=== PATIENT | female | born 1945 | race Asian ===

== ENCOUNTER 2017-09-19 06:47 | Day surgery (SDC) | payer MEDICARE, MEDICAID ==
[2017-09-15 12:29] LABS: HEMOGLOBIN A1C 10.5 % (4.5-6.2)
[2017-09-15 12:37] LABS: PARTIAL THROMBOPLASTIN TIME 24 SECONDS (22-32); PROTHROMBIN TIME 10.3 SECONDS (9.0-12.0)
[2017-09-15 12:59] LABS: HEMOGLOBIN 13.2 g/dl (12.0-16.0); RED BLOOD COUNT 4.18 X10'6 (4.20-5.60); WHITE BLOOD COUNT 4.7 X10'3 (4.5-11.0)
[2017-09-15 13:00] LABS: BASOPHILS % (AUTO) 0.6 % (0-1); EOSINOPHILS # (AUTO) 0.1 X10'3 (0-0.9); EOSINOPHILS % (AUTO) 2.5 % (0-6); HEMATOCRIT 38.6 % (35.0-45.0); LYMPHOCYTES # (AUTO) 1.2 X10'3 (1.1-4.8); LYMPHOCYTES % (AUTO) 25.1 % (21-51); MEAN CORPUSCULAR HEMOGLOBIN 31.7 PG (27.0-31.0); MEAN CORPUSCULAR HGB CONC 34.3 % (33.0-36.5); MEAN CORPUSCULAR VOLUME 92.4 FL (78-98); MEAN PLATELET VOLUME 7.9 FL (7.4-10.4); MONOCYTES # (AUTO) 0.4 X10'3 (0-0.9); MONOCYTES % (AUTO) 9.2 % (2-12); NEUTROPHILS # (AUTO) 2.9 X10'3 (1.8-7.7); NEUTROPHILS % (AUTO) 62.6 % (42-75); PLATELET COUNT 241 X10'3 (140-440); RED CELL DISTRIBUTION WIDTH 13.9 % (11.5-14.5)
[2017-09-15 13:02] LABS: ALANINE AMINOTRANSFERASE 65 U/L (12-78); ALBUMIN 3.3 G/DL (3.4-5.0); ALBUMIN/GLOBULIN RATIO 0.8 (1.1-1.5); ALKALINE PHOSPHATASE 87 IU/L (46-116); ANION GAP 12 (8-16); ASPARTATE AMINO TRANSFERASE 41 U/L (10-37); BILIRUBIN,TOTAL 0.5 MG/DL (0.1-1.0); BLOOD UREA NITROGEN 24 MG/DL (7-18); BUN/CREATININE RATIO 15.7 (6.6-38.0); CALCIUM 9.3 MG/DL (8.5-10.1); CHLORIDE 99 MMOL/L (99-107); CREATININE 1.53 MG/DL (0.40-0.90); GLUCOSE 146 MG/DL (70-104); PHOSPHORUS 3.8 MG/DL (2.3-4.5); POTASSIUM 3.2 MMOL/L (3.5-5.1); SODIUM 138 MMOL/L (135-145); TOTAL CARBON DIOXIDE 27.5 MMOL/L (24-32); TOTAL PROTEIN 7.7 G/DL (6.4-8.2); eGFR 34 ML/MIN
[2017-09-15 13:05] LABS: CLARITY,URINE CLEAR (Clear); COLOR,URINE YELLOW (Yellow); GLUCOSE, URINE 100 mg/dl (Neg); KETONES,URINE NEGATIVE (Neg); LEUKOCYTE ESTERASE ,URINE NEGATIVE (Neg); NITRITES, URINE NEGATIVE (Neg); OCCULT BLOOD,URINE NEGATIVE (Neg); PROTEIN,URINE >=300 mg/dl (Neg); UROBILINOGEN,URINE 0.2 E.U/dL (0.2-1.0)
[2017-09-15 13:06] LABS: UA COLLECTION TYPE CLN CATCH MIDSTREAM
[2017-09-15 13:10] LABS: UA PROTEIN/CREATININE RATIO 5.4 mg/mg Cr (0-0.16)
[2017-09-15 13:23] LABS: BACTERIA,URINE NONE SEEN /HPF (Neg); COARSE GRANULAR CAST 0-3 /LPF (NEGATIVE); MUCUS STRANDS NONE SEEN /LPF (Neg); RBC,URINE NONE SEEN /HPF (0-2); RENAL CELLS, URINE FEW /HPF; SQUAMOUS EPITHELIAL CELL,UR FEW /LPF (FEW); WBC,URINE 0-4 /HPF (0-4)
[2017-09-16 10:58] LABS: PARATHYROID HORMONE 37.9 PG/ML (11-67)
[2017-09-19] VITALS (20 sets, daily range): BP systolic 108–176; BP diastolic 54–94
[~2017-09-19 06:47] MED LIST: NYST15OI14 TP; POTA20TA19 PO; TRIA15CR62 TP; ZINO TP
[2017-09-19] MEDS ORDERED: MIDAZolam 1mg/ml 10ml vial IV ONE (07:25)
[2017-09-19] MEDS ORDERED: LIDOcaine 1%/PF 5ML 10 MG/ML VIAL SQ ONE (08:00)
[2017-09-19] MEDS ORDERED: normal saline 1000ml 1,000 ML IV SCH (08:15)
[2017-09-19 08:30] LABS: BASOPHILS % (AUTO) 0.5 % (0-1); EOSINOPHILS # (AUTO) 0.1 X10'3 (0-0.9); EOSINOPHILS % (AUTO) 2.7 % (0-6); HEMATOCRIT 36.5 % (35.0-45.0); HEMOGLOBIN 12.5 g/dl (12.0-16.0); LYMPHOCYTES # (AUTO) 1.2 X10'3 (1.1-4.8); LYMPHOCYTES % (AUTO) 26.4 % (21-51); MEAN CORPUSCULAR HEMOGLOBIN 31.6 PG (27.0-31.0); MEAN CORPUSCULAR HGB CONC 34.2 % (33.0-36.5); MEAN CORPUSCULAR VOLUME 92.3 FL (78-98); MEAN PLATELET VOLUME 7.7 FL (7.4-10.4); MONOCYTES # (AUTO) 0.5 X10'3 (0-0.9); MONOCYTES % (AUTO) 10.9 % (2-12); NEUTROPHILS # (AUTO) 2.7 X10'3 (1.8-7.7); NEUTROPHILS % (AUTO) 59.5 % (42-75); PLATELET COUNT 233 X10'3 (140-440); RED BLOOD COUNT 3.95 X10'6 (4.20-5.60); RED CELL DISTRIBUTION WIDTH 13.9 % (11.5-14.5); WHITE BLOOD COUNT 4.6 X10'3 (4.5-11.0)
[2017-09-19] MEDS ORDERED: FMLOS EACHEYE (08:43)
[2017-09-19] MEDS ORDERED: SITA100T11 PO (08:43)
[2017-09-19] MEDS ORDERED: KEN0.1O TP (08:43)
[2017-09-19] MEDS ORDERED: VALA500T37 PO (08:43)
[2017-09-19] MEDS ORDERED: GLIP5TAB13 PO (08:43)
[2017-09-19] MEDS ORDERED: GABA300T26 PO (08:43)
[2017-09-19] MEDS ORDERED: DILT120C51 PO (08:43)
[2017-09-19] MEDS ORDERED: LANTUS SQ (08:43)
[2017-09-19] MEDS ORDERED: ATEN-169 PO (08:43)
[2017-09-19] MEDS ORDERED: HYDR25TA4 PO (08:43)
[2017-09-19] MEDS ORDERED: POLY17PO10 PO (08:43)
[2017-09-19] MEDS ORDERED: METF500T PO (08:43)
[2017-09-19] MEDS ORDERED: LOSA25TA96 PO (08:43)
[2017-09-19] MEDS ORDERED: cloNIDine 0.1 mg tablet PO ONE (09:40)
[2017-09-19 12:31] LABS: BASOPHILS % (AUTO) 0.5 % (0-1); EOSINOPHILS # (AUTO) 0.1 X10'3 (0-0.9); EOSINOPHILS % (AUTO) 2.6 % (0-6); HEMATOCRIT 32.8 % (35.0-45.0); HEMOGLOBIN 11.2 g/dl (12.0-16.0); LYMPHOCYTES % (AUTO) 26.5 % (21-51); MEAN CORPUSCULAR HEMOGLOBIN 31.7 PG (27.0-31.0); MEAN CORPUSCULAR HGB CONC 34.2 % (33.0-36.5); MEAN CORPUSCULAR VOLUME 92.8 FL (78-98); MEAN PLATELET VOLUME 7.7 FL (7.4-10.4); MONOCYTES # (AUTO) 0.4 X10'3 (0-0.9); NEUTROPHILS # (AUTO) 2.2 X10'3 (1.8-7.7); NEUTROPHILS % (AUTO) 59.4 % (42-75); PLATELET COUNT 200 X10'3 (140-440); RED BLOOD COUNT 3.54 X10'6 (4.20-5.60); RED CELL DISTRIBUTION WIDTH 13.7 % (11.5-14.5); WHITE BLOOD COUNT 3.7 X10'3 (4.5-11.0)
[2017-09-19 15:06] LABS: BASOPHILS % (AUTO) 0.4 % (0-1); EOSINOPHILS # (AUTO) 0.1 X10'3 (0-0.9); EOSINOPHILS % (AUTO) 2.7 % (0-6); HEMATOCRIT 32.5 % (35.0-45.0); HEMOGLOBIN 10.9 g/dl (12.0-16.0); LYMPHOCYTES % (AUTO) 24.8 % (21-51); MEAN CORPUSCULAR HEMOGLOBIN 31.5 PG (27.0-31.0); MEAN CORPUSCULAR HGB CONC 33.6 % (33.0-36.5); MEAN CORPUSCULAR VOLUME 93.6 FL (78-98); MEAN PLATELET VOLUME 7.7 FL (7.4-10.4); MONOCYTES # (AUTO) 0.5 X10'3 (0-0.9); MONOCYTES % (AUTO) 11.2 % (2-12); NEUTROPHILS # (AUTO) 2.5 X10'3 (1.8-7.7); NEUTROPHILS % (AUTO) 60.9 % (42-75); PLATELET COUNT 200 X10'3 (140-440); RED BLOOD COUNT 3.48 X10'6 (4.20-5.60); RED CELL DISTRIBUTION WIDTH 13.7 % (11.5-14.5); WHITE BLOOD COUNT 4.1 X10'3 (4.5-11.0)
== END 2017-09-19 16:00 | disposition home or self-care (01) ==
LOC: SSTAY O 06:47
PROVIDERS: ATTEND Internal Medicine Critical Care Medicine
DX: N04.9 Nephrotic syndrome with unspecified morphologic changes (principal)
CPT/HCPCS: 36415; 76942; 80053; 81001; 82306; 82570; 82948; 83036; 83970; 84100; 84156; 85025; 85576; 85610; 85730; 86885; 86900; 86901; 86920; 87088; A6449; J2001; J2250; J7030; 88300

== ENCOUNTER 2018-07-31 13:46 | Inpatient (IN) | payer MEDICARE, MEDICAID | END 2018-08-01 16:54 | disposition home or self-care (01) | LOC: ER 13:46 → PCU 3S 19:32 | DX: E87.5 Hyperkalemia (principal); I12.9 Hypertensive chronic kidney disease with stage 1 through stage 4 chronic kidney disease, or unspecified chronic kidney disease; N18.9 Chronic kidney disease, unspecified ==

== ENCOUNTER 2018-12-05 12:00 | Inpatient (IN) | payer MEDICARE, MEDICAID ==
[~2018-12-05] VITALS: Ht 152.4 cm; Wt 81.8 kg
[~2018-12-05 12:00] MED LIST changes: +DILT120C51 PO; +FMLOS EACHEYE; +GABA300T26 PO; +INSU100V11 SQ; +METO100T14 PO; -NYST15OI14 TP; +POLY17PO10 PO; -POTA20TA19 PO; -TRIA15CR62 TP; +VALA500T37 PO; -ZINO TP; +[UNRECOGNIZED DRUG - CODE] PO
[2018-12-05] MEDS ORDERED: normal saline 1000ML IV soln IVB ONE (12:10)
[2018-12-05] MEDS ORDERED: metoprolol tartrate 1mg/ml inj IV ONE (12:25)
[2018-12-05] MEDS ORDERED: GABA-532 PO (12:44)
[2018-12-05 13:01] LABS: EOSINOPHILS # (AUTO) 0.2 X10'3 (0-0.9); LYMPHOCYTES # (AUTO) 1.3 X10'3 (1.1-4.8); MEAN CORPUSCULAR VOLUME 95.9 FL (78-98); MONOCYTES # (AUTO) 0.6 X10'3 (0-0.9); NEUTROPHILS % (AUTO) 54.9 % (42-75); PLATELET COUNT 221 X10'3 (140-440); RED CELL DISTRIBUTION WIDTH 13.6 % (11.5-14.5)
[2018-12-05 13:03] LABS: ALANINE AMINOTRANSFERASE 42 U/L (12-78); ALBUMIN 3.6 G/DL (3.4-5.0); ALBUMIN/GLOBULIN RATIO 0.8 (1.1-1.5); ALKALINE PHOSPHATASE 79 IU/L (46-116); ANION GAP 12 (8-16); ASPARTATE AMINO TRANSFERASE 30 U/L (10-37); BASOPHILS % (AUTO) 0.7 % (0-1); BILIRUBIN,TOTAL 0.3 MG/DL (0.1-1.0); BLOOD UREA NITROGEN 33 MG/DL (7-18); BUN/CREATININE RATIO 20.6 (6.6-38.0); CALCIUM 9.2 MG/DL (8.5-10.1); CHLORIDE 106 MMOL/L (99-107); EOSINOPHILS % (AUTO) 3.9 % (0-6); GLUCOSE 90 MG/DL (70-104); HEMATOCRIT 40.5 % (35.0-45.0); HEMOGLOBIN 13.3 g/dl (12.0-16.0); LYMPHOCYTES % (AUTO) 27.1 % (21-51); MEAN CORPUSCULAR HEMOGLOBIN 31.6 PG (27.0-31.0); MEAN CORPUSCULAR HGB CONC 32.9 g/dL (33.0-36.5); MEAN PLATELET VOLUME 8.4 FL (7.4-10.4); MONOCYTES % (AUTO) 13.4 % (2-12); NEUTROPHILS # (AUTO) 2.6 X10'3 (1.8-7.7); RED BLOOD COUNT 4.22 X10'6 (4.20-5.60); SODIUM 140 MMOL/L (135-145); TOTAL CARBON DIOXIDE 22.5 MMOL/L (24-32); TOTAL PROTEIN 8.1 G/DL (6.4-8.2); WHITE BLOOD COUNT 4.7 X10'3 (4.5-11.0); eGFR 32 ML/MIN
[2018-12-05 13:06] LABS: TROPONIN I 0.16 NG/ML (0.0-0.05)
[2018-12-05 13:14] LABS: POTASSIUM 3.7 MMOL/L (3.5-5.1)
[2018-12-05] MEDS ORDERED: heparin 25,000 UNIT/250ml bag 250 ML IV SCH (13:22)
[2018-12-05] MEDS ORDERED: aspirin 81mg tab.chew PO ONE (13:25)
[2018-12-05] MEDS ORDERED: hydrALAZINE 20mg/ml inj. IV ONE (13:25)
[2018-12-05] MEDS ORDERED: heparin 10,000 units/1 ML INJ IV ONE (13:25)
[2018-12-05] MEDS ORDERED: INSU100V11 SQ ×3 (13:59)
[2018-12-05] MEDS ORDERED: MICO15CR4 TOP (13:59)
[2018-12-05] MEDS ORDERED: acetaminophen 325mg tablet PO PRN (14:00)
[2018-12-05] MEDS ORDERED: dextrose 50%-water 50ml dispensing syringe IV PRN ×2 (14:00)
[2018-12-05] MEDS ORDERED: aminophylline 250mg/10ml inj. IV PRN (14:00)
[2018-12-05] MEDS ORDERED: magnesium 2GM in 50ml NS 50 ML IV PRN (14:00)
[2018-12-05] MEDS ORDERED: mag hydrox/Alum hydrox/simeth 30ml oral suspension PO PRN (14:00)
[2018-12-05] MEDS ORDERED: potassium CL 10mEq/100ml bag 100 ML IV PRN ×2 (14:00)
[2018-12-05] MEDS ORDERED: dextrose ORAL solution 15 GM/59 ML bottle PO PRN ×2 (14:00)
[2018-12-05] MEDS ORDERED: magnesium Cl slow-release 64mg tablet PO PRN (14:00)
[2018-12-05] MEDS ORDERED: ondansetron/PF 4mg/2ml inj IV PRN (14:00)
[2018-12-05] MEDS ORDERED: regadenoson 0.4mg/5ml syringe IV ONE (14:00)
[2018-12-05] MEDS ORDERED: magnesium 4gm in 100ml NS 100 ML IV PRN (14:00)
[2018-12-05] MEDS ORDERED: potassium Cl 20 mEq SR tablet PO PRN ×2 (14:00)
[2018-12-05] MEDS ORDERED: glucagon, human recombinant 1mg kit SUBCUT PRN (14:00)
[2018-12-05] MEDS ORDERED: metoprolol tartrate 1mg/ml inj IV PRN (14:00)
[2018-12-05] MEDS ORDERED: nitroGLYCERIN 0.4mg SUBLingual tab SL PRN (14:00)
[2018-12-05] MEDS ORDERED: MESSAGE TO PHARMACY PO ONE (14:00)
[2018-12-05] MEDS ORDERED: ATOR20TA66 PO (14:02)
[2018-12-05] MEDS ORDERED: LANTUS SQ (14:02)
[2018-12-05] MEDS ORDERED: EMPA10TA PO (14:02)
[2018-12-05] MEDS ORDERED: HYDR-4069 PO (14:02)
[2018-12-05] MEDS ORDERED: LOSA100T57 PO (14:02)
[2018-12-05] MEDS ORDERED: METO100T7 PO (14:06)
[2018-12-05] MEDS ORDERED: TRIA15OI9 TOP (14:07)
[2018-12-05] MEDS ORDERED: VALA500T37 PO (14:08)
[2018-12-05] MEDS ORDERED: LIRA0.6P2 SQ (14:08)
[2018-12-05 14:26] LABS: HEMOGLOBIN A1C 7.3 % (4.5-6.2)
[2018-12-05 14:44] LABS: PARTIAL THROMBOPLASTIN TIME 26 SECONDS (22-32)
--- NOTE | 2018-12-05 15:23 | NUR ---
[facility] CALLED ASKED TO RELAY THAT PT IS NOT TO HAVE CAFFINE AND NPO AFTER DINNER. ALSO ASKED THAT SERIAL TROPONIN BE ORDERED
[2018-12-05] MEDS ORDERED: METO100T14 PO (16:00)
[2018-12-05 16:16] LABS: CLARITY,URINE CLEAR (Clear); COLOR,URINE STRAW (Yellow); GLUCOSE, URINE NEGATIVE (Neg); KETONES,URINE NEGATIVE (Neg); LEUKOCYTE ESTERASE ,URINE NEGATIVE (Neg); NITRITES, URINE NEGATIVE (Neg); OCCULT BLOOD,URINE NEGATIVE (Neg); PROTEIN,URINE 100 mg/dl (Neg); UROBILINOGEN,URINE 0.2 E.U/dL (0.2-1.0)
[2018-12-05 16:18] LABS: UA COLLECTION TYPE CLN CATCH MIDSTREAM
[2018-12-05 16:30] LABS: RBC,URINE 0-2 /HPF (0-2); WBC,URINE 0-4 /HPF (0-4)
[2018-12-05 16:31] LABS: BACTERIA,URINE FEW /HPF (Neg); SQUAMOUS EPITHELIAL CELL,UR FEW /LPF (FEW)
--- NOTE | 2018-12-05 16:45 | NUR ---
KRISTAL PTT AND SENT TO LAB
--- NOTE | 2018-12-05 17:03 | NUR ---
ESTER HOSPITALIST FOR PT'S INCREASE IN BP. THERE IS NO PRN ORDERS FOR ANTI-HYPERTENSIVE MEDS. Addendum: 12/05/18 at 1704 by INDERJIT BP: 229/128
--- NOTE | 2018-12-05 17:07 | NUR ---
I have received report from manjeet LOGAN ER and had the opportunity to ask questions and assume patient care.
[2018-12-05 17:20] VITALS: BP 207/104
[2018-12-05] MEDS: hydrALAZINE 25 MG tablet PO SCH ×2 (17:33→22:00)
--- NOTE | 2018-12-05 17:56 | NUR ---
Heparin running at 1000, ptt within target therapeutic range at 60. reorder cardiac ptt for 6 hours after last draw.
[2018-12-05 18:00] VITALS: BP 211/89
[2018-12-05] MEDS ORDERED: nitroGLYCERIN 0.4mg/hour patch TD ONE (18:30)
[2018-12-05] MEDS ORDERED: metoprolol tartrate 12.5mg (1/2 tablet) PO SCH (20:00)
[2018-12-05] MEDS: metoprolol tartrate 50mg tablet PO SCH (20:19)
[2018-12-05] MEDS ORDERED: temazepam 15mg capsule PO PRN (21:00)
[2018-12-05] MEDS: insulin glargine (Lantus) pen - multi-dose SQ SCH ×2 (21:00→21:54)
[2018-12-05] MEDS: insulin Lispro (HumaLOG) vial - multi-dose SQ SCH (21:55)
[2018-12-05 22:00] VITALS: BP 122/70
[2018-12-05] MEDS: gabapentin 300mg capsule PO SCH (22:00)
--- NOTE | 2018-12-05 22:36 | NUR ---
Heparin running at 1000, ptt within target therapeutic range at 45. reorder cardiac ptt for 6 hours after last draw.
[2018-12-06] VITALS (8 sets, daily range): BP systolic 123–178; BP diastolic 63–93
--- NOTE | 2018-12-06 00:52 | NUR ---
unable to dart pt at this time because of a language barrier. pt is only able to understand small amounts of Georgian and water pump installer phone is not available at this time.
[2018-12-06 04:50] LABS: HEMATOCRIT 35.9 % (35.0-45.0); HEMOGLOBIN 12.1 g/dl (12.0-16.0); MEAN CORPUSCULAR HEMOGLOBIN 31.9 PG (27.0-31.0); MEAN CORPUSCULAR HGB CONC 33.8 g/dL (33.0-36.5); MEAN CORPUSCULAR VOLUME 94.5 FL (78-98); MEAN PLATELET VOLUME 8.1 FL (7.4-10.4); PLATELET COUNT 201 X10'3 (140-440); RED CELL DISTRIBUTION WIDTH 13.6 % (11.5-14.5); WHITE BLOOD COUNT 4.8 X10'3 (4.5-11.0)
[2018-12-06 05:26] LABS: ALBUMIN 3.2 G/DL (3.4-5.0); ANION GAP 12 (8-16); BLOOD UREA NITROGEN 33 MG/DL (7-18); BUN/CREATININE RATIO 17.6 (6.6-38.0); CALCIUM 8.8 MG/DL (8.5-10.1); CHLORIDE 107 MMOL/L (99-107); CHOL/HDL RATIO 3.1 (0.00-4.99); CHOLESTEROL 147 MG/DL (0-200); CREATININE 1.88 MG/DL (0.40-0.90); GLUCOSE 112 MG/DL (70-104); HDL CHOLESTEROL 48 MG/DL (35-60); LDL CHOLESTEROL 81 MG/DL (50-100); MAGNESIUM 2.3 MG/DL (1.5-2.4); POTASSIUM 3.4 MMOL/L (3.5-5.1); SODIUM 141 MMOL/L (135-145); TOTAL CARBON DIOXIDE 22.3 MMOL/L (24-32); TRIGLYCERIDES 100 MG/DL (20-135); eGFR 26 ML/MIN
--- NOTE | 2018-12-06 06:10 | NUR ---
Problems reprioritized. Patient report given, questions answered & plan of care reviewed with Cynthia Barrera RN.
[2018-12-06] MEDS: acetaminophen 325mg tablet PO PRN ×2 (07:32→14:34)
[2018-12-06] MEDS: gabapentin 300mg capsule PO SCH ×2 (07:34→12:21)
[2018-12-06] MEDS: losartan 50mg tablet PO SCH (07:35)
[2018-12-06] MEDS: metoprolol tartrate 50mg tablet PO SCH ×2 (07:35→21:11)
[2018-12-06] MEDS: hydrALAZINE 25 MG tablet PO SCH ×4 (07:36→21:11)
[2018-12-06] MEDS: atorvastatin 20mg tablet PO SCH (07:36)
[2018-12-06] MEDS: aspirin 81mg tablet.DR PO SCH (07:37)
[2018-12-06] MEDS ORDERED: nitroGLYCERIN 0.4mg/hour patch TD SCH (08:00)
[2018-12-06] MEDS ORDERED: LIRAGLUTIDE 0.6 MG/0.1 ML PEN.INJCTR SQ SCH (08:00)
[2018-12-06] MEDS: K and/or MAG REPLACEMENT MC SCH (08:00)
--- NOTE | 2018-12-06 08:00 | NUR ---
Pts home meds are not with her. She lives alone and there is no one to bring meds.
[2018-12-06] MEDS ORDERED: regadenoson 0.4mg/5ml syringe IV ONE (10:00)
--- NOTE | 2018-12-06 11:10 | NUR ---
Received call from [facility] medicine they have postponed cedrick scan r/t chest pain and inverted T waves. Trponin was drawn. Will monoter and potentially repeat test tmrw
[2018-12-06] MEDS: insulin Lispro (HumaLOG) vial - multi-dose SQ SCH ×2 (13:06→19:05)
--- NOTE | 2018-12-06 14:59 | NUR ---
DM consult: Pt with hx T2DM, current A1c 7.3 up from 6.6 in July of this year per EMR. Attempted visit with pt at bedside however pt unavailable. Pt will need DM education with referral to outpatient DM class prior to discharge. Will continue to follow. Addendum: 12/06/18 at [address] Amended: Links added.
--- NOTE | 2018-12-06 18:30 | NUR ---
Patient in room PCU 3022D. I have received report from DESMOND Marie and had the opportunity to ask questions and assume patient care. Pt is eating dinner. Pt is alert and oriented. Will continue to monitor
--- NOTE | 2018-12-06 18:30 | NUR ---
Report given to EDSMOND Levine pt is at bedside eating dinner NAD
[2018-12-06] MEDS: hydrALAZINE 20mg/ml inj. IV PRN (19:06)
[2018-12-06] MEDS: insulin glargine (Lantus) pen - multi-dose SQ SCH ×2 (21:00)
[2018-12-06] MEDS: nitroGLYCERIN 0.4mg/hour patch TD SCH (21:10)
[2018-12-07] VITALS (16 sets, daily range): BP systolic 96–197; BP diastolic 40–100
[2018-12-07] MEDS: hydrALAZINE 20mg/ml inj. IV PRN ×2 (02:08→12:19)
[2018-12-07 06:28] LABS: HEMATOCRIT 36.3 % (35.0-45.0); HEMOGLOBIN 12.2 g/dl (12.0-16.0); MEAN CORPUSCULAR HGB CONC 33.6 g/dL (33.0-36.5); MEAN CORPUSCULAR VOLUME 95.2 FL (78-98); MEAN PLATELET VOLUME 8.1 FL (7.4-10.4); PLATELET COUNT 209 X10'3 (140-440); RED BLOOD COUNT 3.81 X10'6 (4.20-5.60); RED CELL DISTRIBUTION WIDTH 13.7 % (11.5-14.5); WHITE BLOOD COUNT 6.3 X10'3 (4.5-11.0)
--- NOTE | 2018-12-07 06:30 | NUR ---
Problems reprioritized. Patient report given, questions answered & plan of care reviewed with DESMOND Sandoval . Pt is sleeping with no sign of distress. Patient blood pressure stable at shift change
--- NOTE | 2018-12-07 06:33 | NUR ---
Patient in room PCU 3028. I have received report from Abner LOGAN and had the opportunity to ask questions and assume patient care. Pt is in bed sleeping, will continue to monitor.
[2018-12-07 06:40] LABS: ALBUMIN 3.2 G/DL (3.4-5.0); ANION GAP 10 (8-16); BLOOD UREA NITROGEN 33 MG/DL (7-18); BUN/CREATININE RATIO 18.3 (6.6-38.0); CALCIUM 8.4 MG/DL (8.5-10.1); CHLORIDE 107 MMOL/L (99-107); GLUCOSE 186 MG/DL (70-104); MAGNESIUM 2.2 MG/DL (1.5-2.4); POTASSIUM 3.5 MMOL/L (3.5-5.1); SODIUM 140 MMOL/L (135-145); TOTAL CARBON DIOXIDE 23.3 MMOL/L (24-32); eGFR 28 ML/MIN
[2018-12-07] MEDS: gabapentin 300mg capsule PO SCH (07:52)
[2018-12-07] MEDS: metoprolol tartrate 50mg tablet PO SCH (07:52)
[2018-12-07] MEDS: atorvastatin 20mg tablet PO SCH (07:53)
[2018-12-07] MEDS: losartan 50mg tablet PO SCH ×2 (07:53→20:26)
[2018-12-07] MEDS: hydrALAZINE 25 MG tablet PO SCH ×2 (07:53→11:51)
[2018-12-07] MEDS: aspirin 81mg tablet.DR PO SCH (07:53)
[2018-12-07] MEDS: K and/or MAG REPLACEMENT MC SCH (07:53)
[2018-12-07] MEDS: insulin Lispro (HumaLOG) vial - multi-dose SQ SCH ×4 (08:19→21:42)
[2018-12-07] MEDS ORDERED: aminophylline 250mg/10ml inj. IV PRN (08:35)
--- NOTE | 2018-12-07 11:57 | NUR ---
PAGER ID: [phone] MESSAGE: [id number] Cecil, Dep: Pt returned back from [facility], BP elevated 172/98 gave scheduled Hydralazine and will recheck BP, also can we feed patient now? Thanks Jaime [phone]
--- NOTE | 2018-12-07 15:32 | NUR ---
PAGER ID: [phone] MESSAGE: [id number] Cecil, Dep: TERESA Pt continues to have elevated BP 179/95 (115), too soon to administer PRN Hydralazine. Please advise. Thanks Jaime [phone]
[2018-12-07] MEDS ORDERED: amLODIPine 5mg tablet PO SCH (16:25)
--- NOTE | 2018-12-07 18:24 | NUR ---
Problems reprioritized. Patient report given, questions answered & plan of care reviewed with Meghna LOGAN.
--- NOTE | 2018-12-07 18:25 | NUR ---
Patient in room PCU 3028. I have received report from Paradise LOGAN and had the opportunity to ask questions and assume patient care.
[2018-12-07] MEDS ORDERED: metoprolol tartrate 50mg tablet PO SCH (20:00)
[2018-12-07] MEDS: nitroGLYCERIN 0.4mg/hour patch TD SCH (20:24)
[2018-12-07] MEDS: metoprolol succinate 25mg (24-HOUR) SR. Tablet PO SCH (20:25)
[2018-12-07] MEDS: amLODIPine 5mg tablet PO SCH (20:26)
[2018-12-07] MEDS: insulin glargine (Lantus) pen - multi-dose SQ SCH ×2 (21:00→21:40)
[2018-12-07] MEDS: magnesium hydroxide 30ml (MOM) UD suspension PO PRN (23:08)
[2018-12-08] VITALS (7 sets, daily range): BP systolic 109–181; BP diastolic 6–82
[2018-12-08 05:22] LABS: ALBUMIN 3.2 G/DL (3.4-5.0); ANION GAP 10 (8-16); BLOOD UREA NITROGEN 40 MG/DL (7-18); BUN/CREATININE RATIO 20.1 (6.6-38.0); CALCIUM 8.6 MG/DL (8.5-10.1); CHLORIDE 106 MMOL/L (99-107); CREATININE 1.99 MG/DL (0.40-0.90); GLUCOSE 175 MG/DL (70-104); MAGNESIUM 2.8 MG/DL (1.5-2.4); POTASSIUM 3.8 MMOL/L (3.5-5.1); SODIUM 142 MMOL/L (135-145); eGFR 25 ML/MIN
[2018-12-08 05:42] LABS: HEMATOCRIT 36.7 % (35.0-45.0); HEMOGLOBIN 12.1 g/dl (12.0-16.0); MEAN CORPUSCULAR HEMOGLOBIN 31.9 PG (27.0-31.0); MEAN CORPUSCULAR HGB CONC 33.1 g/dL (33.0-36.5); MEAN CORPUSCULAR VOLUME 96.4 FL (78-98); MEAN PLATELET VOLUME 7.9 FL (7.4-10.4); PLATELET COUNT 203 X10'3 (140-440); RED BLOOD COUNT 3.81 X10'6 (4.20-5.60); RED CELL DISTRIBUTION WIDTH 13.9 % (11.5-14.5); WHITE BLOOD COUNT 4.5 X10'3 (4.5-11.0)
--- NOTE | 2018-12-08 06:32 | NUR ---
Patient in room PCU 3028. I have received report from DESMOND Lai and had the opportunity to ask questions and assume patient care.
--- NOTE | 2018-12-08 06:40 | NUR ---
Problems reprioritized. Patient report given, questions answered & plan of care reviewed with Cynthia LOGAN.
[2018-12-08] MEDS: gabapentin 300mg capsule PO SCH (07:40)
[2018-12-08] MEDS: losartan 50mg tablet PO SCH ×2 (07:40→19:48)
[2018-12-08] MEDS: atorvastatin 20mg tablet PO SCH (07:40)
[2018-12-08] MEDS: aspirin 81mg tablet.DR PO SCH (07:40)
[2018-12-08] MEDS: metoprolol succinate 25mg (24-HOUR) SR. Tablet PO SCH ×2 (07:40→19:48)
[2018-12-08] MEDS: amLODIPine 5mg tablet PO SCH ×2 (07:42→19:48)
[2018-12-08] MEDS: K and/or MAG REPLACEMENT MC SCH (08:00)
[2018-12-08] MEDS ORDERED: AMLO10TA PO (09:34)
[2018-12-08] MEDS ORDERED: LOSA100T57 PO (09:34)
[2018-12-08] MEDS ORDERED: METO-395 PO (09:34)
[2018-12-08] MEDS ORDERED: ASPI-1071 PO (09:34)
[2018-12-08] MEDS ORDERED: METO100T7 PO (09:40)
[2018-12-08] MEDS: insulin Lispro (HumaLOG) vial - multi-dose SQ SCH ×3 (09:46→21:37)
--- NOTE | 2018-12-08 09:52 | NUR ---
offered ambulation and patient deferred walking on unit. She is steady ambulating to BR and self transfers. Denies headache or dizziness.
[2018-12-08] MEDS ORDERED: isosorbide mononitrate 30mg tab.SR.24H PO ONE (11:10)
[2018-12-08] MEDS ORDERED: ISOS30TA6 PO (11:16)
--- NOTE | 2018-12-08 12:06 | NUR ---
Cecil, Dep rm 3022N Dr Costa postpone dischargeuntil Monday. Added Minoxidil 2.5mg bib
--- NOTE | 2018-12-08 13:31 | NUR ---
HTN noted MD advised new medications ordered. Isobide and Nitro SL given per order. BP decreased 1hr after medical record retrieval specialist see vitals
[2018-12-08] MEDS ORDERED: magnesium hydroxide 30ml (MOM) UD suspension PO ONE (14:15)
--- NOTE | 2018-12-08 18:15 | NUR ---
Problems reprioritized. Patient report given, questions answered & plan of care reviewed with DESMOND Lai.
--- NOTE | 2018-12-08 18:43 | NUR ---
Patient in room PCU 3028. I have received report from Cynthia LOGAN and had the opportunity to ask questions and assume patient care.
[2018-12-08] MEDS: minoxidil 2.5mg tablet PO SCH (19:49)
[2018-12-08] MEDS: nitroGLYCERIN 0.4mg/hour patch TD SCH (19:49)
[2018-12-08] MEDS ORDERED: docusate sod 100mg capsule PO ONE (20:00)
[2018-12-08] MEDS: acetaminophen 325mg tablet PO PRN (21:10)
[2018-12-08] MEDS: magnesium hydroxide 30ml (MOM) UD suspension PO PRN (21:10)
[2018-12-08] MEDS: insulin glargine (Lantus) pen - multi-dose SQ SCH ×2 (21:38→21:42)
[2018-12-09 02:00] VITALS: BP 125/80
[2018-12-09 05:05] LABS: HEMATOCRIT 34.5 % (35.0-45.0); HEMOGLOBIN 11.3 g/dl (12.0-16.0); MEAN CORPUSCULAR HEMOGLOBIN 31.5 PG (27.0-31.0); MEAN CORPUSCULAR HGB CONC 32.8 g/dL (33.0-36.5); MEAN PLATELET VOLUME 8.1 FL (7.4-10.4); PLATELET COUNT 190 X10'3 (140-440); RED CELL DISTRIBUTION WIDTH 13.7 % (11.5-14.5); WHITE BLOOD COUNT 3.8 X10'3 (4.5-11.0)
[2018-12-09 05:15] LABS: ALBUMIN 2.9 G/DL (3.4-5.0); ANION GAP 8 (8-16); BLOOD UREA NITROGEN 36 MG/DL (7-18); BUN/CREATININE RATIO 23.5 (6.6-38.0); CALCIUM 8.8 MG/DL (8.5-10.1); CHLORIDE 109 MMOL/L (99-107); CREATININE 1.53 MG/DL (0.40-0.90); GLUCOSE 127 MG/DL (70-104); MAGNESIUM 2.7 MG/DL (1.5-2.4); POTASSIUM 3.9 MMOL/L (3.5-5.1); SODIUM 142 MMOL/L (135-145); TOTAL CARBON DIOXIDE 24.7 MMOL/L (24-32); eGFR 33 ML/MIN
--- NOTE | 2018-12-09 06:49 | NUR ---
Patient in room PCU 3028. I have received report from Joelle LOGAN and had the opportunity to ask questions and assume patient care. Patient awake in bed with no complaints at this time. All immediate needs met.
--- NOTE | 2018-12-09 06:49 | NUR ---
Problems reprioritized. Patient report given, questions answered & plan of care reviewed with Jeanette LOGAN.
[2018-12-09 07:00] VITALS: BP 134/68
[2018-12-09] MEDS ORDERED: isosorbide mononitrate 30mg tab.SR.24H PO SCH (08:00)
[2018-12-09] MEDS: K and/or MAG REPLACEMENT MC SCH (08:00)
[2018-12-09] MEDS: atorvastatin 20mg tablet PO SCH (08:30)
[2018-12-09] MEDS: gabapentin 300mg capsule PO SCH (08:30)
[2018-12-09] MEDS: losartan 50mg tablet PO SCH (08:31)
[2018-12-09] MEDS: metoprolol succinate 25mg (24-HOUR) SR. Tablet PO SCH (08:31)
[2018-12-09] MEDS: minoxidil 2.5mg tablet PO SCH (08:31)
[2018-12-09] MEDS: amLODIPine 5mg tablet PO SCH (08:32)
[2018-12-09] MEDS: aspirin 81mg tablet.DR PO SCH (08:33)
[2018-12-09] MEDS: insulin Lispro (HumaLOG) vial - multi-dose SQ SCH ×2 (08:36→13:52)
[2018-12-09 11:00] VITALS: BP 158/79
--- NOTE | 2018-12-09 11:55 | NUR ---
Rechecked blood sugar (124), asymptomatic, will continue to monitor.
--- NOTE | 2018-12-09 13:50 | NUR ---
Paged. Dr. Calderon: PAGER ID: [phone] MESSAGE: RE: Shira Jacob [id number]. Per Dr. Costa, patient is OK to discharge. Thank you. Jeanette [phone]
--- NOTE | 2018-12-09 14:37 | NUR ---
F/u: Pt unable to wake sleeping during RD visit; written DM ed w/ RD contact and CDE course information left at bedside. Pt pending d/c. Will continue to monitor. Addendum: 12/09/18 at [address] Amended: Links added.
[2018-12-09 15:00] VITALS: BP 164/80
[2018-12-09] MEDS ORDERED: MINO2.5T19 PO (15:32)
--- NOTE | 2018-12-09 17:28 | NUR ---
Paged Dr. Calderon: PAGER ID: [phone] MESSAGE: RE: Shira Jacob [id number]. Preparing to discharge patient. Patient said she was anxious about BP. 191/96 then 173/79 5 minutes later. Think patient is anxious. Please advise if OK to discharge. Thank you, Jeanette
--- NOTE | 2018-12-09 17:50 | NUR ---
Paged Dr. Amanuel Calderon: PAGER ID: [phone] MESSAGE: RE: Shira Jacob [id number]. Xanax requires a triplicate script. Are you in house? Thanks, Jeanette [phone]
[2018-12-09 18:00] VITALS: BP 175/79
--- NOTE | 2018-12-09 18:00 | NUR ---
Patient stable for discharge per MD orders. All discharge instructions reviewed and all questions answered. Patient daughter bedside to receive discharge instructions as patient is non [place]raltarian speaker. New prescriptions called into [facility] on [address]. Triplicate prescription for xanax given to patient. Patient to follow up with PCP in 1 week. PIV discontinued - cannula intact. Telemetry monitoring discontinued. All patient belongings sent with patient in private vehicle to home. Patient wheeled to lobby by [facility].
--- NOTE | 2018-12-09 18:43 | NUR ---
[place]rientee documentation: I have reviewed and agree with all interventions, assessments performed and documented by DESMOND Mandel. Orientee Medication Administration: For this medication-pass time frame, all medication were reviewed, dispensed, administered and documented per hospital policy by Tequila LOGAN.
== END 2018-12-09 18:10 | disposition home or self-care (01) | DRG 281 ==
LOC: ER 12:00 → CANBEDREQ 13:53 → OBSVTOIN 17:29 → PCU 3S 17:29 → CMPBEDREQ 19:04
PROVIDERS: ADMIT Family Medicine; ATTEND Family Medicine
PROC: 4A02XM4 Measurement of Cardiac Total Activity, External Approach (ICD-10-PCS; principal; 2018-12-06)
PROC: 3E033HZ Introduction of Radioactive Substance into Peripheral Vein, Percutaneous Approach (ICD-10-PCS; 2018-12-06)
DX: I21.A1 Myocardial infarction type 2 (principal); I67.4 Hypertensive encephalopathy; I16.0 Hypertensive urgency; E78.5 Hyperlipidemia, unspecified; I12.9 Hypertensive chronic kidney disease with stage 1 through stage 4 chronic kidney disease, or unspecified chronic kidney disease; N18.9 Chronic kidney disease, unspecified; E11.22 Type 2 diabetes mellitus with diabetic chronic kidney disease; E78.00 Pure hypercholesterolemia, unspecified; G89.29 Other chronic pain; I25.10 Atherosclerotic heart disease of native coronary artery without angina pectoris; E87.6 Hypokalemia; D47.2 Monoclonal gammopathy; Z90.710 Acquired absence of both cervix and uterus; Z87.440 Personal history of urinary (tract) infections; Z79.4 Long term (current) use of insulin; Z79.899 Other long term (current) drug therapy; Z87.441 Personal history of nephrotic syndrome
CPT/HCPCS: 36415; 70450; 71045; 78451; 80048; 80053; 80061; 81001; 82948; 83036; 83735; 83880; 84443; 84484; 85025; 85027; 85610; 85730; 87081; 93005; 93017; 93306; 96365; 96375; 96376; 97116; 97161; 97530; 99285; A9500; G0378; J0280; J0360; J1644; J1815; J2405; J2785; J3490

== ENCOUNTER 2019-03-04 08:25 | Inpatient (IN) | payer MEDICARE, MEDICAID ==
[~2019-03-04] VITALS: Ht 157.5 cm; Wt 87.3 kg
[~2019-03-04 08:25] MED LIST changes: +AMLO10TA PO; +ASPI-1071 PO; +ATOR20TA66 PO; -DILT120C51 PO; +EMPA10TA PO; -FMLOS EACHEYE; +GABA-532 PO; -GABA300T26 PO; +LANTUS SQ; +LIRA0.6P2 SQ; +LOSA100T57 PO; -METO100T14 PO; +MINO2.5T19 PO; -[UNRECOGNIZED DRUG - CODE] PO
[2019-03-04 09:38] LABS: EOSINOPHILS # (AUTO) 0.1 X10'3 (0-0.9); EOSINOPHILS % (AUTO) 3.1 % (0-6); HEMATOCRIT 37.5 % (35.0-45.0); HEMOGLOBIN 12.7 g/dl (12.0-16.0); LYMPHOCYTES % (AUTO) 21.5 % (21-51); MEAN CORPUSCULAR HEMOGLOBIN 32.1 PG (27.0-31.0); MEAN CORPUSCULAR HGB CONC 33.9 g/dL (33.0-36.5); MEAN CORPUSCULAR VOLUME 94.7 FL (78-98); MEAN PLATELET VOLUME 7.8 FL (7.4-10.4); MONOCYTES # (AUTO) 0.5 X10'3 (0-0.9); MONOCYTES % (AUTO) 10.6 % (2-12); NEUTROPHILS % (AUTO) 63.8 % (42-75); PLATELET COUNT 240 X10'3 (140-440); RED BLOOD COUNT 3.97 X10'6 (4.20-5.60); RED CELL DISTRIBUTION WIDTH 14.3 % (11.5-14.5); WHITE BLOOD COUNT 4.7 X10'3 (4.5-11.0)
[2019-03-04] MEDS ORDERED: nitroGLYCERIN 0.4mg/hour patch TD ONE (09:40)
[2019-03-04 09:56] LABS: ALANINE AMINOTRANSFERASE 33 U/L (12-78); ALBUMIN 3.5 G/DL (3.4-5.0); ALBUMIN/GLOBULIN RATIO 0.8 (1.1-1.5); ALKALINE PHOSPHATASE 84 IU/L (46-116); ANION GAP 11 (8-16); ASPARTATE AMINO TRANSFERASE 24 U/L (10-37); BILIRUBIN,TOTAL 0.5 MG/DL (0.1-1.0); BLOOD UREA NITROGEN 25 MG/DL (7-18); BUN/CREATININE RATIO 15.2 (6.6-38.0); CALCIUM 9.2 MG/DL (8.5-10.1); CHLORIDE 106 MMOL/L (99-107); CREATININE 1.64 MG/DL (0.40-0.90); GLUCOSE 175 MG/DL (70-104); POTASSIUM 3.4 MMOL/L (3.5-5.1); SODIUM 141 MMOL/L (135-145); TOTAL CARBON DIOXIDE 24.3 MMOL/L (24-32); eGFR 31 ML/MIN
[2019-03-04] MEDS ORDERED: nitroGLYCERIN 0.4mg SUBLingual tab SL PRN (10:35)
[2019-03-04] MEDS ORDERED: ondansetron/PF 4mg/2ml inj IV PRN (10:35)
[2019-03-04] MEDS ORDERED: morphine 2 MG/ML inj. syringe IV PRN ×2 (10:35)
[2019-03-04] MEDS ORDERED: HYDROcodone/acetaminophen 5mg/325mg tablet PO PRN (10:35)
[2019-03-04] MEDS ORDERED: mag hydrox/Alum hydrox/simeth 30ml oral suspension PO PRN (10:35)
[2019-03-04] MEDS ORDERED: acetaminophen 325mg tablet PO PRN ×2 (10:35)
--- NOTE | 2019-03-04 11:44 | NUR ---
PAGED HOSPITALIST TO GET AN ANTI-HYPERTENSIVE
[2019-03-04] MEDS ORDERED: cloNIDine 0.1 mg tablet PO SCH (11:50)
[2019-03-04] MEDS ORDERED: cloNIDine 0.1 mg tablet PO ONE ×2 (11:50→12:48)
--- NOTE | 2019-03-04 12:10 | NUR ---
TALKED TO TASH ([facility] [address]) ABOUT GETTING AN UPDATED MED LIST. WAITING FOR FAX
[2019-03-04 12:38] LABS: HEMOGLOBIN A1C 7.7 % (4.5-6.2)
[2019-03-04] MEDS ORDERED: INSU100C4 SQ ×3 (12:43→12:44)
[2019-03-04] MEDS ORDERED: DILT240C51 PO (12:44)
[2019-03-04] MEDS ORDERED: ISOS30TA6 PO (12:46)
[2019-03-04] MEDS ORDERED: METO100T7 PO (12:46)
[2019-03-04] MEDS ORDERED: LOSA25TA96 PO (12:46)
[2019-03-04] MEDS ORDERED: HYDR25TA4 PO (12:46)
[2019-03-04] MEDS ORDERED: nitroGLYCERIN-Tridil 50MG/D5W 250 ML IV SCH (13:00)
--- NOTE | 2019-03-04 13:10 | NUR ---
DR. HUSSEIN GAVE A VERBAL ORDER FOR NITRO DRIP TO BE STARTED AT [facility] UNTIL BP IS LESS THAN 140/80.
--- NOTE | 2019-03-04 13:21 | NUR ---
BP BEFORE STARTING NITRO IS 113/59. DID NOT ADMINSTER NITRO. DR. HUSSEIN HAS BEEN PAGED.
--- NOTE | 2019-03-04 13:30 | NUR ---
PT BP IS STABLE AT THIS TIME 113/59 DID NOT START NITRO DRIP.
--- NOTE | 2019-03-04 13:37 | NUR ---
Received report from DESMOND Jones in the ER. Patient will be transferred to room 3023A. Informed that the patients BP does not warrant the NTG gtt, Robert to notify Dr. Urrutia. Will await patients transfer up to the floor.
[2019-03-04 14:00] VITALS: BP 128/64
--- NOTE | 2019-03-04 14:05 | NUR ---
Patient has arrived from the ED via gurney. Patient was able to ambulate to the hospital bed with a steady gait and little assistance. Patient has been placed on tele, v/s have been taken, 2 RN skin check has been completed with DESMOND Reid, and physical assessment has been completed at this time. Patient has been oriented to the room: call light within reach, BLL, SRx2. Patient has no complaints at this time. Will order the patient a meal tray per her request. Will continue to monitor the patient.
[2019-03-04] MEDS ORDERED: ergocalciferol (Vitamin D) 50,000 unit capsule PO SCH (14:35)
--- NOTE | 2019-03-04 14:59 | NUR ---
management technician at the bedside. Patient has no complaints at this time. audit tech has been informed of the echo procedure. Will continue to monitor the patient.
--- NOTE | 2019-03-04 16:33 | NUR ---
Problems reprioritized. Patient report given, questions answered & plan of care reviewed with Claudette LOGAN.
--- NOTE | 2019-03-04 16:36 | NUR ---
Patient in room PCU 3023A. I have received report from Aarti LOGAN and had the opportunity to ask questions and assume patient care.
[2019-03-04] MEDS ORDERED: potassium CL 10mEq/100ml bag 100 ML IV PRN (16:45)
[2019-03-04] MEDS ORDERED: magnesium 4gm in 100ml NS 100 ML IV PRN (16:45)
[2019-03-04] MEDS ORDERED: potassium Cl 20 mEq SR tablet PO PRN (16:45)
[2019-03-04] MEDS ORDERED: magnesium Cl slow-release 64mg tablet PO PRN (16:45)
[2019-03-04] MEDS: potassium Cl 20 mEq SR tablet PO PRN (16:53)
--- NOTE | 2019-03-04 17:55 | NUR ---
I have reviewed assessment by Aarti LOGAN once taking over care, and agree with assessment.
[2019-03-04 18:00] VITALS: BP 129/62
--- NOTE | 2019-03-04 18:00 | NUR ---
Patient in room PCU 3023. I have received report from Claudette LOGAN and had the opportunity to ask questions and assume patient care.
--- NOTE | 2019-03-04 18:41 | NUR ---
Problems reprioritized. Patient report given, questions answered & plan of care reviewed with Rosi LOGAN. Pt stable at change of shift
[2019-03-04] MEDS ORDERED: metoprolol succinate 25mg (24-HOUR) SR. Tablet PO SCH (20:00)
[2019-03-04] MEDS: gabapentin 300mg capsule PO SCH (20:14)
[2019-03-04] MEDS: diltiazem CD 120mg capsule (once-daily) PO SCH (20:14)
[2019-03-04 22:00] VITALS: BP 119/65
[2019-03-05] VITALS (7 sets, daily range): BP systolic 105–184; BP diastolic 43–88
--- NOTE | 2019-03-05 06:08 | NUR ---
Problems reprioritized. Patient report given, questions answered & plan of care reviewed with Claudette LOGAN.
[2019-03-05 06:24] LABS: BASOPHILS % (AUTO) 0.8 % (0-1); EOSINOPHILS # (AUTO) 0.1 X10'3 (0-0.9); EOSINOPHILS % (AUTO) 2.9 % (0-6); HEMATOCRIT 31.3 % (35.0-45.0); HEMOGLOBIN 10.7 g/dl (12.0-16.0); LYMPHOCYTES # (AUTO) 0.9 X10'3 (1.1-4.8); LYMPHOCYTES % (AUTO) 20.3 % (21-51); MEAN CORPUSCULAR HEMOGLOBIN 32.4 PG (27.0-31.0); MEAN CORPUSCULAR HGB CONC 34.1 g/dL (33.0-36.5); MEAN CORPUSCULAR VOLUME 95.1 FL (78-98); MONOCYTES # (AUTO) 0.5 X10'3 (0-0.9); MONOCYTES % (AUTO) 11.5 % (2-12); NEUTROPHILS % (AUTO) 64.5 % (42-75); PLATELET COUNT 204 X10'3 (140-440); RED BLOOD COUNT 3.29 X10'6 (4.20-5.60); RED CELL DISTRIBUTION WIDTH 14.4 % (11.5-14.5); WHITE BLOOD COUNT 4.7 X10'3 (4.5-11.0)
[2019-03-05 06:39] LABS: ALBUMIN 3.1 G/DL (3.4-5.0); ANION GAP 10 (8-16); BLOOD UREA NITROGEN 38 MG/DL (7-18); BUN/CREATININE RATIO 16.3 (6.6-38.0); CALCIUM 8.7 MG/DL (8.5-10.1); CHLORIDE 105 MMOL/L (99-107); CHOL/HDL RATIO 4.1 (0.00-4.99); CHOLESTEROL 155 MG/DL (0-200); CREATININE 2.33 MG/DL (0.40-0.90); GLUCOSE 187 MG/DL (70-104); HDL CHOLESTEROL 38 MG/DL (35-60); LACTATE DEHYDROGENASE 175 U/L (81-234); LDL CHOLESTEROL 83 MG/DL (50-100); POTASSIUM 3.4 MMOL/L (3.5-5.1); SODIUM 138 MMOL/L (135-145); TOTAL CARBON DIOXIDE 23.5 MMOL/L (24-32); TRIGLYCERIDES 187 MG/DL (20-135); eGFR 21 ML/MIN
--- NOTE | 2019-03-05 06:55 | NUR ---
Patient in room PCU 3023A. I have received report from Rosi LOGAN and had the opportunity to ask questions and assume patient care.
[2019-03-05 07:06] LABS: RHEUM FACTOR QUAL REFLEX TITER NEGATIVE (Neg)
[2019-03-05] MEDS ORDERED: insulin Lispro (HumaLOG) vial - multi-dose SQ SCH (07:30)
[2019-03-05] MEDS: nitroGLYCERIN 0.4mg/hour patch TD SCH (07:47)
[2019-03-05] MEDS: atorvastatin 20mg tablet PO SCH (07:48)
[2019-03-05] MEDS: metoprolol succinate 25mg (24-HOUR) SR. Tablet PO SCH ×2 (07:48→20:13)
[2019-03-05] MEDS: gabapentin 300mg capsule PO SCH ×3 (07:48→20:13)
[2019-03-05] MEDS: aspirin 81mg tablet.DR PO SCH (07:48)
[2019-03-05] MEDS: potassium Cl 20 mEq SR tablet PO PRN ×2 (07:49→12:45)
[2019-03-05] MEDS: diltiazem CD 120mg capsule (once-daily) PO SCH ×2 (07:49→20:13)
[2019-03-05] MEDS: isosorbide mononitrate 30mg tab.SR.24H PO SCH (07:49)
[2019-03-05] MEDS: LIRAGLUTIDE 0.6 MG/0.1 ML PEN.INJCTR SQ SCH (07:56)
[2019-03-05] MEDS ORDERED: HYDROchlorothiazide 25mg tablet PO SCH (08:00)
[2019-03-05] MEDS ORDERED: losartan 25mg tablet PO SCH (08:00)
--- NOTE | 2019-03-05 09:51 | NUR ---
notified regarding renal ultrasound report PAGER ID: [phone] MESSAGE: Claudette burns [phone]. Zarina Rose 3023A. FYI that patients report from the renal ultrasound is uploaded.
[2019-03-05] MEDS: hydrALAZINE 20mg/ml inj. IV PRN ×2 (16:10→22:15)
--- NOTE | 2019-03-05 16:48 | NUR ---
Pt BP 170/88 at 1530. Current IV infiltrated. Given PRN hydralazine at 1610 after new IV placed and will reassess.
--- NOTE | 2019-03-05 16:59 | NUR ---
Pt with A1c 7.7. Attempted visit at bedside however pt speaks limited Kyrgyz and no family/visitors at bedside. Pt previously admitted and seen by [facility] 12/09/18 where pt was provided with written DM education with referral to outpatient DM class and RD contact information. Pt currently on a heart healthy CHO controlled diet documented with 75-100% PO intake likely meeting nutrient needs. Will continue to follow and provide education was appropriate. Addendum: 03/05/19 at [address] Amended: Links added.
--- NOTE | 2019-03-05 18:34 | NUR ---
Problems reprioritized. Patient report given, questions answered & plan of care reviewed with Olive LOGAN.
--- NOTE | 2019-03-05 18:49 | NUR ---
Patient in room PCU 3023. I have received report from Claudette LOGAN and had the opportunity to ask questions and assume patient care.
[2019-03-05] MEDS: magnesium hydroxide 30ml (MOM) UD suspension PO PRN (20:18)
--- NOTE | 2019-03-05 21:30 | NUR ---
Santiago Rousseau notified that patient's BG was 202 and she did not have the regular hyperglycemic protocol ordered but only Humalog 12 units as a give with breakfast. He ordered the regular hyperglycemic protocol and discontinued the morning give of Humalog as she will just be treated with Humalog per the protocol and then she will start on Lantus now.
[2019-03-05] MEDS ORDERED: glucagon, human recombinant 1mg kit SUBCUT PRN (21:45)
[2019-03-05] MEDS ORDERED: dextrose ORAL solution 15 GM/59 ML bottle PO PRN ×2 (21:45)
[2019-03-05] MEDS ORDERED: MESSAGE TO PHARMACY PO ONE (21:45)
[2019-03-05] MEDS ORDERED: dextrose 50%-water 50ml dispensing syringe IV PRN ×2 (21:45)
[2019-03-05] MEDS: insulin glargine (Lantus) pen - multi-dose SQ SCH (22:13)
--- NOTE | 2019-03-05 22:25 | NUR ---
PRN IVP Hydralazine given for BP of 184/83.
[2019-03-06 02:00] VITALS: BP 158/73
[2019-03-06 06:00] VITALS: BP 158/73
--- NOTE | 2019-03-06 06:00 | NUR ---
Patient in room PCU 3023. I have received report from Olive LOGAN and had the opportunity to ask questions and assume patient care.
--- NOTE | 2019-03-06 06:18 | NUR ---
Problems reprioritized. Patient report given, questions answered & plan of care reviewed with Harjinder LOGAN.
[2019-03-06 06:19] LABS: BASOPHILS % (AUTO) 0.8 % (0-1); EOSINOPHILS # (AUTO) 0.2 X10'3 (0-0.9); EOSINOPHILS % (AUTO) 3.7 % (0-6); HEMATOCRIT 37.2 % (35.0-45.0); HEMOGLOBIN 12.5 g/dl (12.0-16.0); LYMPHOCYTES # (AUTO) 1.1 X10'3 (1.1-4.8); LYMPHOCYTES % (AUTO) 22.1 % (21-51); MEAN CORPUSCULAR HEMOGLOBIN 31.9 PG (27.0-31.0); MEAN CORPUSCULAR HGB CONC 33.6 g/dL (33.0-36.5); MEAN CORPUSCULAR VOLUME 94.8 FL (78-98); MONOCYTES # (AUTO) 0.5 X10'3 (0-0.9); NEUTROPHILS % (AUTO) 62.4 % (42-75); PLATELET COUNT 246 X10'3 (140-440); RED BLOOD COUNT 3.92 X10'6 (4.20-5.60); RED CELL DISTRIBUTION WIDTH 14.9 % (11.5-14.5); WHITE BLOOD COUNT 4.8 X10'3 (4.5-11.0)
--- NOTE | 2019-03-06 06:20 | NUR ---
Patient in room [place] [address]. I have received report from and had the opportunity to ask questions and assume patient care. Addendum: 03/06/19 at 0625 by Harjinder Tapia RN Patient in room [place] [address]. I have received report from Olive LOGAN and had the opportunity to ask questions and assume patient care.
[2019-03-06 06:52] LABS: ALBUMIN 3.5 G/DL (3.4-5.0); ANION GAP 11 (8-16); BLOOD UREA NITROGEN 33 MG/DL (7-18); BUN/CREATININE RATIO 17.9 (6.6-38.0); CALCIUM 9.1 MG/DL (8.5-10.1); CHLORIDE 107 MMOL/L (99-107); CREATININE 1.84 MG/DL (0.40-0.90); GLUCOSE 218 MG/DL (70-104); POTASSIUM 4.1 MMOL/L (3.5-5.1); SODIUM 140 MMOL/L (135-145); TOTAL CARBON DIOXIDE 22.4 MMOL/L (24-32); eGFR 27 ML/MIN
[2019-03-06] MEDS: diltiazem CD 120mg capsule (once-daily) PO SCH ×2 (07:33→20:04)
[2019-03-06] MEDS: isosorbide mononitrate 30mg tab.SR.24H PO SCH (07:33)
[2019-03-06] MEDS: gabapentin 300mg capsule PO SCH ×2 (07:33→20:05)
[2019-03-06] MEDS: aspirin 81mg tablet.DR PO SCH (07:33)
[2019-03-06] MEDS: atorvastatin 20mg tablet PO SCH (07:33)
[2019-03-06] MEDS: metoprolol succinate 25mg (24-HOUR) SR. Tablet PO SCH ×2 (07:34→20:05)
[2019-03-06] MEDS: nitroGLYCERIN 0.4mg/hour patch TD SCH (07:36)
[2019-03-06] MEDS: LIRAGLUTIDE 0.6 MG/0.1 ML PEN.INJCTR SQ SCH (08:00)
[2019-03-06 08:10] LABS: COMPLEMENT C3, SERUM 107 mg/dL (82-167); COMPLEMENT C4, SERUM 16 mg/dL (14-44); RPR Non Reactive (Non Reactive)
[2019-03-06] MEDS: insulin Lispro (HumaLOG) vial - multi-dose SQ SCH ×3 (08:57→20:13)
--- NOTE | 2019-03-06 09:31 | NUR ---
Per Dr. Renan MASSEY'd nitro patch and removed from patient, continue to monitor patient BP, if BP elevated administer additional 60 mg Isosorbide
--- NOTE | 2019-03-06 10:54 | NUR ---
promotional table spacer PAGER ID: [phone] MESSAGE: Re: Shira Jacob, Room: [facility]. Pt's blood pressure 188/90. Will administer the additional 60mg PO of Imdur as discussed. -Harjinder [facility] #[id number] Dr. Urrutia paged concerning Pt's elevated blood pressure
[2019-03-06 11:00] VITALS: BP 183/88
[2019-03-06] MEDS ORDERED: isosorbide mononitrate 30mg tab.SR.24H PO ONE (11:00)
[2019-03-06 11:13] LABS: TOTAL PROTEIN,URINE RANDOM 128.8 MG/DL
[2019-03-06 11:16] LABS: HBSAG SCREEN Negative (Negative); HEPATITIS C ANTIBODY <0.1 s/co ratio (0.0-0.9)
[2019-03-06 15:22] LABS: ANTINUCLEAR ANTIBODIES Positive (Negative)
[2019-03-06] MEDS: hyDRALAzine 10mg tablet PO SCH (15:55)
[2019-03-06 18:00] VITALS: BP 156/79
--- NOTE | 2019-03-06 18:26 | NUR ---
Problems reprioritized. Patient report given, questions answered & plan of care reviewed with Laurie LOGAN.
--- NOTE | 2019-03-06 18:29 | NUR ---
Patient in room PCU 3023. I have received report from DESMOND Grande and had the opportunity to ask questions and assume patient care.
[2019-03-06] MEDS: magnesium hydroxide 30ml (MOM) UD suspension PO PRN (20:16)
[2019-03-06] MEDS ORDERED: insulin glargine (Lantus) pen - multi-dose SQ SCH (21:00)
[2019-03-06] MEDS: insulin glargine (Lantus) pen - multi-dose SQ SCH (22:15)
[2019-03-07] MEDS: hyDRALAzine 10mg tablet PO SCH ×3 (00:41→16:34)
[2019-03-07 05:10] LABS: BASOPHILS % (AUTO) 0.6 % (0-1); EOSINOPHILS # (AUTO) 0.2 X10'3 (0-0.9); EOSINOPHILS % (AUTO) 4.9 % (0-6); HEMATOCRIT 34.1 % (35.0-45.0); HEMOGLOBIN 11.4 g/dl (12.0-16.0); LYMPHOCYTES # (AUTO) 1.1 X10'3 (1.1-4.8); LYMPHOCYTES % (AUTO) 26.6 % (21-51); MEAN CORPUSCULAR HEMOGLOBIN 31.8 PG (27.0-31.0); MEAN CORPUSCULAR HGB CONC 33.5 g/dL (33.0-36.5); MEAN CORPUSCULAR VOLUME 94.8 FL (78-98); MEAN PLATELET VOLUME 7.8 FL (7.4-10.4); MONOCYTES # (AUTO) 0.7 X10'3 (0-0.9); MONOCYTES % (AUTO) 15.4 % (2-12); NEUTROPHILS # (AUTO) 2.2 X10'3 (1.8-7.7); NEUTROPHILS % (AUTO) 52.5 % (42-75); PLATELET COUNT 213 X10'3 (140-440); RED CELL DISTRIBUTION WIDTH 14.2 % (11.5-14.5); WHITE BLOOD COUNT 4.2 X10'3 (4.5-11.0)
[2019-03-07 05:12] LABS: ALBUMIN 3.2 G/DL (3.4-5.0); ANION GAP 10 (8-16); BLOOD UREA NITROGEN 44 MG/DL (7-18); BUN/CREATININE RATIO 22.9 (6.6-38.0); CALCIUM 8.8 MG/DL (8.5-10.1); CHLORIDE 104 MMOL/L (99-107); CREATININE 1.92 MG/DL (0.40-0.90); GLUCOSE 237 MG/DL (70-104); POTASSIUM 3.5 MMOL/L (3.5-5.1); SODIUM 138 MMOL/L (135-145); eGFR 26 ML/MIN
[2019-03-07 05:14] LABS: ALBUMIN 3.2 g/dL (2.9-4.4); BETA GLOBULIN 0.7 g/dL (0.7-1.3); GAMMA GLOBULIN 1.3 g/dL (0.4-1.8); GLOBULIN, TOTAL 3.1 g/dL (2.2-3.9); M-SPIKE 0.8 g/dL (Not Observed); PROTEIN, TOTAL, SERUM 6.3 g/dL (6.0-8.5)
[2019-03-07 06:00] VITALS: BP 158/84
--- NOTE | 2019-03-07 06:25 | NUR ---
Patient in room PCU 3023. I have received report from Laurie LOGAN and had the opportunity to ask questions and assume patient care.
--- NOTE | 2019-03-07 06:33 | NUR ---
Problems reprioritized. Patient report given, questions answered & plan of care reviewed with DESMOND Grande.
[2019-03-07 06:53] LABS: PLATELET ESTIMATE NORMAL; TOTAL CELLS COUNTED 100
[2019-03-07] MEDS: LIRAGLUTIDE 0.6 MG/0.1 ML PEN.INJCTR SQ SCH (08:00)
[2019-03-07] MEDS: metoprolol succinate 25mg (24-HOUR) SR. Tablet PO SCH (08:06)
[2019-03-07] MEDS: atorvastatin 20mg tablet PO SCH (08:07)
[2019-03-07] MEDS: diltiazem CD 120mg capsule (once-daily) PO SCH (08:07)
[2019-03-07] MEDS: gabapentin 300mg capsule PO SCH (08:07)
[2019-03-07] MEDS: aspirin 81mg tablet.DR PO SCH (08:07)
[2019-03-07] MEDS: isosorbide mononitrate 30mg tab.SR.24H PO SCH (08:07)
[2019-03-07] MEDS: insulin Lispro (HumaLOG) vial - multi-dose SQ SCH ×2 (08:12→13:42)
--- NOTE | 2019-03-07 10:59 | NUR ---
promotional table spacer PAGER ID: [phone] MESSAGE: Re: Cecil Dep, Room: 3023A. recent BP's 175/85 and 181/88. -Harjinder [facility] #[id number] Dr. Urrutia paged concerning Pt's BP
[2019-03-07 11:00] VITALS: BP 157/78
--- NOTE | 2019-03-07 11:54 | NUR ---
PAGER ID: [phone] MESSAGE: Re: Cecil Silva, Room: [facility]. Retook Pt's BP 162/74 -[facility] #[id number] Dr. Urrutia paged concerning Pt's BP
[2019-03-07 15:00] VITALS: BP 155/77
[2019-03-07] MEDS ORDERED: METO-395 PO (15:37)
[2019-03-07] MEDS ORDERED: hyDRALAzine tablet PO (15:37)
--- NOTE | 2019-03-07 17:30 | NUR ---
Pt DC'd home. IV removed, canula intact. Tele-box removed and returned to [employer]. Pt stable at DC, Vitals WNL, Pt alert and oriented. DC paper work gone over with Pt while using infection control rn over the phone, Pt speaks Bengali. Allowed Pt to ask questions concerning DC and then answered them. New prescriptions called into [facility] pharmacy at [address], [place]. Went over when to take the new meds. Spoke with Pt about new prescriptions ans picking them up tomorrow morning since pharmacy will be closed by the time Pt is DC'd. Pt has an appointment with Dr. Eubanks on Monday03/11/19 at 0800 for cardiology follow up. Pt's belongings gathered and sent with Pt. Pt wheeled down to lobby in wheelchair by nursing staff. Pt left in Taxi for home.
[2019-03-08 15:31] LABS: RENIN, PLASMA 0.397 ng/mL/hr (0.167-5.380)
[2019-03-11 14:03] LABS: ATYPICAL PANCA <1:20 titer (Neg:<1:20); CYTOPLASMIC (C-ANCA) <1:20 titer (Neg:<1:20); PERINUCLEAR (P-ANCA) <1:20 titer (Neg:<1:20)
[2019-03-12 09:09] LABS: ALBUMIN, UR 67.3 % (.); ALPHA-1-GLOBULIN,UR 5.3 % (.); ALPHA-2-GLOBULIN,UR 5.3 % (.); BETA GLOBULIN, UR 11.6 % (.); GAMMA GLOBULIN,UR 10.5 % (.); M-SPIKE, % 6.4 % (Not Observed); PROTEIN,TOTAL,URINE 126.8 mg/dL (Not Estab.)
== END 2019-03-07 18:01 | disposition home or self-care (01) | DRG 280 ==
LOC: ER 08:26 → ED HOLD 10:32 → EDBEDREQ 11:58 → PCU 3S 13:45
PROVIDERS: ADMIT Internal Medicine; ATTEND Internal Medicine
DX: I21.4 Non-ST elevation (NSTEMI) myocardial infarction (principal); N17.0 Acute kidney failure with tubular necrosis; I16.1 Hypertensive emergency; N18.3 Chronic kidney disease, stage 3 (moderate); E66.01 Morbid (severe) obesity due to excess calories; I12.9 Hypertensive chronic kidney disease with stage 1 through stage 4 chronic kidney disease, or unspecified chronic kidney disease; D47.2 Monoclonal gammopathy; D64.9 Anemia, unspecified; E11.22 Type 2 diabetes mellitus with diabetic chronic kidney disease; E11.40 Type 2 diabetes mellitus with diabetic neuropathy, unspecified; E78.00 Pure hypercholesterolemia, unspecified; E78.5 Hyperlipidemia, unspecified; G47.30 Sleep apnea, unspecified; Z96.653 Presence of artificial knee joint, bilateral; G89.29 Other chronic pain; R51 Headache; H93.11 Tinnitus, right ear; I25.9 Chronic ischemic heart disease, unspecified; Z79.4 Long term (current) use of insulin; Z79.899 Other long term (current) drug therapy; Z85.42 Personal history of malignant neoplasm of other parts of uterus; Z87.441 Personal history of nephrotic syndrome; Z90.710 Acquired absence of both cervix and uterus; Z68.35 Body mass index [BMI] 35.0-35.9, adult
CPT/HCPCS: 36415; 71045; 80048; 80053; 80061; 82088; 82570; 82948; 83036; 83615; 83880; 84155; 84156; 84165; 84166; 84244; 84443; 84484; 85025; 85610; 85651; 86038; 86160; 86256; 86430; 86592; 86803; 87081; 87340; 93005; 93308; 93975; 99285; G0378; J0360; J1815; J3490

== ENCOUNTER 2020-01-31 07:20 | Emergency (ER) | payer MEDICARE, MEDICAID ==
[~2020-01-31] VITALS: Ht 157.5 cm; Wt 89.0 kg
[~2020-01-31 07:20] MED LIST changes: -AMLO10TA PO; -ASPI-1071 PO; +DILT240C51 PO; -EMPA10TA PO; +HYDR25TA4 PO; +INSU100C4 SQ; -INSU100V11 SQ; +ISOS30TA6 PO; -LOSA100T57 PO; +LOSA25TA96 PO; +METO-395 PO; -MINO2.5T19 PO; -POLY17PO10 PO; -VALA500T37 PO; +VALA500T41 PO; +hyDRALAzine tablet PO
[2020-01-31 07:26] VITALS: BP 191/93
== END 2020-01-31 07:53 | disposition home or self-care (01) ==
LOC: ER 07:23
DX: S00.11XA Contusion of right eyelid and periocular area, initial encounter (principal); E78.00 Pure hypercholesterolemia, unspecified; I12.9 Hypertensive chronic kidney disease with stage 1 through stage 4 chronic kidney disease, or unspecified chronic kidney disease; E11.22 Type 2 diabetes mellitus with diabetic chronic kidney disease; N18.9 Chronic kidney disease, unspecified; G89.29 Other chronic pain; Z85.9 Personal history of malignant neoplasm, unspecified; Z90.710 Acquired absence of both cervix and uterus; Z79.4 Long term (current) use of insulin; Z79.899 Other long term (current) drug therapy; Z79.2 Long term (current) use of antibiotics; X58.XXXA Exposure to other specified factors, initial encounter; Y93.89 Activity, other specified; Y92.89 Other specified places as the place of occurrence of the external cause; Y99.8 Other external cause status
CPT/HCPCS: 99282

== ENCOUNTER 2025-01-27 08:35 | Inpatient (IN) | payer MEDICARE, MEDICAID ==
[~2025-01-27] VITALS: Ht 154.9 cm; Wt 77.3 kg
[~2025-01-27 08:35] MED LIST changes: -ISOS30TA6 PO; +ISOS30TA84 PO; +LOSA-415 PO; -LOSA25TA96 PO
[2025-01-27 09:15] LABS: MEAN PLATELET VOLUME 7.4 FL (7.4-10.4); RED CELL DISTRIBUTION WIDTH 14.6 % (11.5-14.5)
[2025-01-27 09:38] LABS: CREATININE 3.07 MG/DL (0.40-0.90); TOTAL CARBON DIOXIDE 26.3 MMOL/L (24-32); eCRCL 11 ML/MIN; eGFR 15 ML/MIN
--- NOTE | 2025-01-27 09:49 | Physician Documentation ---
Addendum CHIEF COMPLAINT/HPI: Patient is a 79-year-old female with a history of atrial fibrillation (takes Eliquis), type 2 insulin-dependent diabetes, hyperlipidemia who presents with three days of right upper quadrant abdominal pain and dark urine. She vomited yesterday. No diarrhea. REVIEW OF SYSTEMS: Constitutional: Denies chills, fatigue, fever, weight gain or weight loss. HEENT: Denies hearing loss, sinus pressure or visual changes. Respiratory: Denies cough, shortness of breath or wheezing. Cardiovascular: Denies chest pain, pain while walking (claudication), edema or palpitations. Gastrointestinal: Right upper quadrant abdominal pain. Genitourinary: Denies painful urination (dysuria), excessive amount of urine (polyuria) or urinary frequency. Metabolic/Endocrine: Denies cold intolerance, heat intolerance, excessive thirst (polydipsia) or excessive hunger (polyphagia). Neurological: Denies dizziness, extremity numbness, extremity weakness, headaches, seizures or tremors. Psychiatric: Denies anxiety or depression. Integumentary: Denies breast discharge, breast lump, hives, mole change(s), rash or skin lesion. Musculoskeletal: Denies back pain, joint pain, joint swelling or neck pain. Hematologic: Denies easily bleeding, easily bruises, lymphedema or issues with blood clots. Immunologic: Denies food allergies or seasonal allergies. PHYSICAL EXAMINATION: Vitals and nursing note reviewed. Constitutional: General: Patient is awake, alert, oriented x 4 in no acute distress and well appearing. Speech is clear and lucid. Appearance: Normal appearance. Patient is not ill-appearing, toxic-appearing or diaphoretic. HENT: Head: Normocephalic and atraumatic. Mouth: Mucous membranes are moist. Pharynx: Oropharynx is clear. Eyes: General: No scleral icterus. Extraocular Movements: Extraocular movements intact. Pupils: Pupils are equal, round, and reactive to light. Neck: Supple, no Kernig or Brudzinski sign. Cardiovascular: Rate and Rhythm: Normal rate and regular rhythm. Heart sounds: No murmur heard. Pulmonary: Effort: No respiratory distress. Breath sounds: No wheezing, rhonchi or rales. Abdominal: General: There is no distension. Palpations: There is no fluid wave, hepatomegaly or mass. Tenderness: Right upper quadrant abdominal tenderness without rebound. Musculoskeletal: General: No swelling or deformity. Skin: Coloration: Skin is not jaundiced. Findings: No erythema or rash. Neurological: Mental Status: Patient is alert. MEDICAL DECISION MAKING: MRCP shows no definite CBD stone though it does not rule it out entirely. Nor does the MRCP rule out some other obstructive process which may require ultra sound. I spoke with Dr. Rojas who recommended transferring the patient. Departure Disposition: 02 SHORT TERM HOSPITAL Impression: Primary Impression: RUQ abdominal pain Additional Impressions: Common bile duct dilatation Intrahepatic bile duct dilation Condition: Stable SOCORRO MUÑOZ MD Jan 27, 2025 09:49
[2025-01-27] MEDS: potassium Cl 20 mEq SR tablet PO STA (10:03)
[2025-01-27] MEDS: potassium CL 10mEq/100ml bag 100 ML IV SCH (10:04)
--- NOTE | 2025-01-27 11:15 | RADIOLOGY REPORT ---
INDICATION: RUQ pain, transaminitis TECHNIQUE: Multiple real-time sonographic images of the abdomen were obtained. COMPARISON: None FINDINGS: The liver is homogenous in echogenicity. The liver measures 15cm. No intrahepatic biliary ductal dilatation is noted. The gallbladder wall measures 0.5 cm and is thickened. No gallstones or sludge is seen. The common duct measures 1.2 cm and is unremarkable. No pericholecystic fluid is noted. The right kidney measures 1cm. No hydronephrosis. Multiple right renal cysts are noted measuring up to 2 cm. The pancreas is not well visualized due to obscuration from bowel gas. The visualized portions of the IVC and aorta are grossly unremarkable. IMPRESSION: Thickened gallbladder wall, trace pericholecystic fluid. Common bile duct appears dilated. Consider MRCP.
[2025-01-27] MEDS: piperacillin/tazo 3.375gm/50ml 50 ML IV STA (11:20)
--- NOTE | 2025-01-27 11:59 | RADIOLOGY REPORT ---
Exam: CT CT ABDOMEN PELVIS History: RUQ pain, transaminitis. Comparison Study: US ULTRASOUND OF ABDOMEN on DOS: 01/27/25 Technique: Multidetector spiral CT of the abdomen and pelvis was performed from lung bases to pubic symphysis. Imaging was performed without intravenous contrast. Coronal and sagittal multiplanar reformats were obtained from the axial data set by the technologist. Radiation Dose : 1. Abdomen/Pelvis: CTDIvol 11.9 mGy, DLP 566.1 mGy*cm. Findings: Evaluation of vasculature and solid organs is limited due to lack of intravenous contrast use. Lung Bases: Lung bases are clear. Visualized portions of the heart and pericardium are unremarkable. Liver: The liver is normal in size. No focal lesions. Gallbladder and Biliary Tree: The gallbladder is slightly distended. No intrahepatic biliary ductal dilatation. The common bile duct measures 1 cm. Spleen: Unremarkable Pancreas: The pancreas is grossly unremarkable. Adrenal Glands: Unremarkable Kidneys: Kidneys are unremarkable without calculi or hydronephrosis. Bilateral renal cysts. There is an exophytic lesion in the lower pole of the right kidney measuring 4.1 cm. GI tract: The stomach is grossly normal in appearance. No evidence of small bowel wall thickening or abnormal dilatation to suggest bowel obstruction. Scattered stool throughout the colon. Colonic diverticulosis without acute diverticulitis. No acute appendicitis. Peritoneum/mesentery/retroperitoneum. No evidence of free intraperitoneal air. No ascites. No evidence of suspicious lymphadenopathy. Abdominal Wall: Unremarkable. Vasculature: The visualized abdominal aorta is normal in size and caliber. Evaluation of abdominal and pelvic vessels is limited due to lack of intravenous contrast. There are atherosclerotic calcifications in the aorta. Urinary Bladder: Grossly unremarkable for degree of distention. Pelvic Organs: Unremarkable Musculoskeletal: No aggressive focal bony lesions, acute fractures or dislocation. IMPRESSION: 1. Slightly distended gallbladder without calcified gallstones. Common bile duct is dilated. Acute acholecystitis not excluded. 2. Slightly distended gallbladder with dilated common bile duct measuring 1 cm. 3. No intrahepatic biliary ductal dilatation. 4. Exophytic lesion in the lower pole of the right kidney measuring 4.1 cm. 5. Recommend further evaluation with ultrasound.
[2025-01-27 12:53] LABS: LEUKOCYTE ESTERASE ,URINE TRACE (Neg); NITRITES, URINE NEGATIVE (Neg); OCCULT BLOOD,URINE TRACE-INTACT (Neg)
[2025-01-27 12:57] LABS: UA COLLECTION TYPE NON-SPECIFIED
[2025-01-27 13:01] LABS: SQUAMOUS EPITHELIAL CELL,UR FEW /LPF (FEW)
[2025-01-27 13:02] LABS: AMORPHOUS URATES 1+
--- NOTE | 2025-01-27 14:47 | RADIOLOGY REPORT ---
PROCEDURE: MR MRCP Indication: RUQ pain, dilated CBD, GB wall thicking COMPARISON: 01/27/25 TECHNIQUE: Multiplanar multisequence images of the abdomen are obtianed per MRCP protocol. FINDINGS: Examination degraded by motion. There is gallbladder wall thickening. No definitive cholelithiasis seen Dilated common bile duct measuring 14 mm. Left intrahepatic duct dilated to 6 mm. The pancreatic duct is normal caliber measuring 3 mm. Pancreatic T2 bright/ cystic lesions measuring up to 6 mm. Adrenal glands, spleen unremarkable. No hydronephrosis. Bilateral renal cysts measuring up to 4.2 cm in the right kidney and 2.4 cm in the left kidney. Right renal hemorrhagic / proteinaceous cyst measuring 9 mm. Left renal hemorrhagic/proteinaceous cyst measuring 5 mm. IMPRESSION: Thickened gallbladder wall but no evidence for cholelithiasis. Correlate for acalculous cholecystitis. Recommend surgical consultation. Dilated common bile duct up to 14 mm as well as dilatation of the intrahepatic ducts of the 6 mm. No definitive evidence for choledocholithiasis. Recommend GI and surgical consultation to exclude obstructing biliary / ampullary / pancreatic head etiology. Pancreatic T2 bright/ cystic lesions measuring up to 6 mm which can be seen with IPMN, pancreatic cyst, pseudocyst, cystic neoplasm. Recommend MRI abdomen with and without contrast to evaluate.
[2025-01-27] MEDS ORDERED: ERGO500093 PO (17:36)
[2025-01-27] MEDS ORDERED: AZIL1TAB3 PO (17:36)
[2025-01-27] MEDS ORDERED: METO200T37 PO (17:36)
[2025-01-27] MEDS ORDERED: NYST15PO13 TOP (17:36)
[2025-01-27] MEDS ORDERED: AMIO200T76 PO (17:36)
[2025-01-27] MEDS ORDERED: APIX5TAB3 PO (17:36)
[2025-01-27] MEDS ORDERED: NIFE-128 PO (17:36)
[2025-01-27] MEDS ORDERED: NYST15CR TOP (17:36)
[2025-01-28 06:20] LABS: CREATININE 2.64 MG/DL (0.40-0.90); TOTAL CARBON DIOXIDE 27.8 MMOL/L (24-32); eCRCL 13 ML/MIN; eGFR 17 ML/MIN
[2025-01-28] MEDS: piperacillin/tazo 3.375gm/50ml 50 ML IV SCH (07:59)
[2025-01-28] MEDS ORDERED: HYDROcodone/acetaminophen 10/325mg tab PO PRN (08:40)
[2025-01-28] MEDS ORDERED: potassium Cl 40MEQ/1/2NS 520ml 520 ML IV PRN (08:40)
[2025-01-28] MEDS ORDERED: magnesium Cl slow-release 64mg tablet PO PRN (08:40)
[2025-01-28] MEDS ORDERED: mag hydrox/Alum hydrox/simeth 30ml oral suspension PO PRN (08:40)
[2025-01-28] MEDS ORDERED: metoclopramide 5 mg/ml inj IV PRN (08:40)
[2025-01-28] MEDS ORDERED: HYDROcodone/acetaminophen 5mg/325mg tablet PO PRN (08:40)
[2025-01-28] MEDS ORDERED: magnesium sulf-water 4G/100mL 100 ML IV PRN (08:40)
[2025-01-28] MEDS ORDERED: potassium Cl 20 mEq SR tablet PO PRN (08:40)
[2025-01-28] MEDS ORDERED: ondansetron/PF 4mg/2ml inj IV PRN (08:40)
[2025-01-28] MEDS ORDERED: magnesium hydroxide 30ml (MOM) UD suspension PO PRN (08:40)
[2025-01-28] MEDS ORDERED: magnesium sulf-water 2g/50mL 50 ML IV PRN (08:40)
[2025-01-28] MEDS ORDERED: glucagon, human recombinant 1mg kit SUBCUT PRN (08:50)
[2025-01-28] MEDS ORDERED: DEXTROSE 15 GM of carb/4 tabs (each vial/BOTTLE has 4 tablets) PO PRN ×2 (08:50)
[2025-01-28] MEDS ORDERED: dextrose 50%-water 50ml dispensing syringe IV PRN ×2 (08:50)
[2025-01-28 09:08] LABS: OSMOLALITY 294 MOSM/K (280-300)
[2025-01-28 09:31] LABS: PRO BRAIN NATRIURETIC PEPTIDE 549 PG/ML (0-450)
[2025-01-28] MEDS: PERFLUTREN PROTEIN-A MICROSPHR (Optison) 0.22 MG/ML 3ML VIAL IV ONE (09:59)
[2025-01-28] MEDS: normal saline 1000ml 1,000 ML IV SCH (09:59)
--- NOTE | 2025-01-28 11:06 | CONSULTATION REPORT - RESIDENT ---
Consult Providers to CC Resident Creating Document: STEPHENIE SALDAÑA CC: BRENDA LAYTON MD History of Present Illness Reason for Admit\Complaint: Abdominal pain History of Present Illness Patient is a 79 y/o female with history of DM2, HTN, A-fib, CKD, and uterine cancer in remission who came to the ED due to abdominal pain. Patient is [place]orese and Turkmen is limited but I was able to obtain sufficient history with the help of her . Patient reports abdominal pain which started three days ago, pain was sharp, located in right upper quadrant/subcostal, nonradiated, 10/10 in intensity, with no aggravating or attenuating factors. Pain was accompanied with a single episode of emesis, chills and decreased appetite. In addition, she reports that she noticed orange-tinged urine for the past three days with occasional painful urination. In the ED, patient underwent laboratory tests, which showed significantly elevated liver enzymes as well as an MRCP which revealed CBD dilation without presence of stones. CT scan showed signs consistent with acalculous cholecystitis. GI has been consulted for further evaluation and management. Allergies: Coded Allergies: No Known Allergies (Unverified , 01/27/25) Home Medications Home Medications Active [hyDRALAzine tablet] 10 MG Tablet 50 Mg PO Q8H Reported Cordarone (Amiodarone HCl) 200 Mg Tablet 1 Tab PO DAILY 30 Days Nystatin 100,000 Unit/Gram Powder TOP BID Nystatin 100,000 Unit/Gram Cream.gm. 1 Applic TOP BID Vitamin D2 (Ergocalciferol (Vitamin D2)) 1,250 Mcg (50132 Unit) Capsule 1 Cap PO Q7D Edarbyclor 40-12.5 mg Tablet (Azilsartan Med/Chlorthalidone) 40 Mg-12.5 Mg Tablet 1 Tab PO DAILY 30 Days Metoprolol Succinate 200 Mg Tab.sr.24h 1 Tab PO DAILY Eliquis (Apixaban) 5 Mg Tablet 1 Tab PO Q12H 30 Days Nifedipine Er (Nifedipine) 60 Mg Tablet.sa 1 Tab PO DAILY 30 Days Cozaar* (Losartan Potassium) 25 Mg Tablet 4 Tab PO DAILY 30 Days Hydrochlorothiazide 25 Mg Tablet 1 Tab PO DAILY 30 Days Isosorbide Mononitrate Er (Isosorbide Mononitrate) 30 Mg Tab.er.24h 1 Tab PO DAILY 30 Days Cartia Xt (Diltiazem HCl) 240 Mg Cap.er.24h 1 Cap PO BID Novolog (Insulin Aspart) 100 Unit/1 Ml Cartridge 12 Unit SQ BEFORE SUPPER Novolog (Insulin Aspart) 100 Unit/1 Ml Cartridge 14 Unit SQ BEFORE LUNCH Novolog (Insulin Aspart) 100 Unit/1 Ml Cartridge 12 Unit SQ BKF Victoza 3-Ben (Liraglutide) 0.6 Mg/0.1 Ml Pen.injctr 1.2 Mg SQ DAILY Valacyclovir (Valacyclovir HCl) 500 Mg Tablet 1 Tab PO DAILY 30 Days Atorvastatin Calcium 20 Mg Tablet 1 Tab PO DAILY Lantus* (Insulin Glargine) 100 Unit/1 Ml Vial 38 Units SQ QPM Gabapentin 300 Mg Capsule 1 Cap PO TID Past Medical History Past Medical History DM2, HTN, A-fib, CKD, and uterine cancer in remission Past Surgical History Surgical History Comment Total hysterectomy due to uterine cancer BL total knee replacement BL carpal tunnel Family History Family History: FH: colon cancer Sister Past Social History Social History Comment Denies ETOH, smoking, and recreational drugs Lives with Dr Padilla is her auditor Dr Ernesto Eubanks is her rf engineer Dr Quintana is her planning consultant Dr Stevenson is her PCP ROS ROS All systems were reviewed and found negative except for pertinent positives mentioned in HPI Exam Vitals: Vital Signs Date Time Temp Pulse Resp B/P (MAP) Pulse Ox O2 Delivery O2 Flow Rate FiO2 01/28/25 08:57 97.9 66 16 147/74 (98) 100 0 General: General: awake, alert oriented to place, time, and person HEENT: no pallor present, no icterus, moist mucous membranes Neck: No masses and tenderness Resp: Unlabored. Lungs clear to auscultation bilaterally Chest: Normal expansion Cardiovascular: tachycardic, regular rhythm, normal S1 and S2 without murmur, rub or gallop Abdomen: Soft and mildly tender to palpation in RUQ, no organomegaly, no guarding and rigidity, bowel sounds present Neuro: No focal weakness in the upper and lower limb muscles, power of the muscles 4/5 bilateral upper and lower extremities, normal reflexes bilaterally. Cranial nerves intact Extremities: No cyanosis,clubbing or edema Skin: Warm and Dry. No lesions Psych: Normal affect and mood Diagnostic Data Last Recorded Lab Results: 01/27/25 0904 01/28/25 0537 Additional Plan Gastroenterology consult note: Assesment: 79-year-old patient admitted with abdominal pain. Patient did have elevated transaminases which improved overnight. Patient does have modestly elevated the common bile duct and intrahepatic duct. However there are no signs of ascending cholangitis with white count or fever. There are no signs of sepsis. It is quite possible that she might have passed a small stone that has given rise to dilated common bile duct. However there are no stones seen on MRCP. Is also a high possibility that she has acalculous cholecystitis. The elevated transaminases could not have been secondary to the cholecystitis. With hydration and initial treatment including antibiotic the LFTs have improved. At this point since MRCP has a ruled out bile duct stone, and given the fact that MRCP is quite a reliable, as much as ERCP in detecting stones, ERCP may not be indicated. If the general surgeon feels cholecystectomy indicated we could proceed with cholecystectomy. However there is a possibility that still remains in that there could be a peripapillary or pancreatic head lesion causing the dilation of common bile duct although I would like to see some hyperbilirubinemia in that scenario. We will clinically monitor once she goals for cholecystectomy, and I noticed that HIDA scan has been ordered. In summary, the combination of elevated transaminases, presentation with the abdominal pain and that without a signs of sepsis at ascending cholangitis, radiographic finding of dilated common bile duct to about 14 mm on MRCP without choledocholithiasis makes me suspicious for 3 possibilities: A choledocholithiasis that has passed the bile duct and has not caused any ascending cholangitis Acalculous cholecystitis, as evidenced by lack of stones, elevated transaminases significantly upon admission, improvement with initial treatment including hydration and antibiotics. Peripapillary or pancreatic head lesion causing dilated the common bile duct, elevated transaminases without hyperbilirubinemia is not consistent for this diagnosis. I would have liked to see painless jaundice in the scenario. Plan: - Initially, there was a discussion with the are not ERCP would be necessary, since it was not very clear picture I had recommended a transfer the patient for ERCP, and at the same time requested a surgical opinion and defer the final decision of transferring for ERCP versus admitting for cholecystectomy to the surgeon. It appears that overnight the discussion continued with the surgeon and the surgeon was comfortable admitting the patient for possible cholecystectomy. - Keep NPO for now - Continue monitoring liver enzymes - Continue pain control as needed. Avoid NSAIDS due to CKD history - Continue Zosyn - Continue IV hydration. - agree with obtaining a HIDA scan Other comorbidities: MELINA on CKD DM2 HTN A-fib Continue management per hospitalist team Above recommendations discussed in detail with Dr Bob Hernandez MD Internal Medicine Resident, PGY-2 Date of Service: Jan 28, 2025 Billing Provider: BRENDA LAYTON MD, LEONARDO LUIS Jan 28, 2025 11:06 BRENDA LAYTON MD Jan 28, 2025 14:49
[2025-01-28] MEDS: INSULIN LISPRO 100 UNIT/ML INSULN.PEN MULTI-DOSE SQ SCH (12:00)
--- NOTE | 2025-01-28 17:14 | RADIOLOGY REPORT ---
Procedure: NM NM HIDA SCAN Exam Date: 01/28/2025 02:22 PM Clinical History: cholecystitis, abdominal pain Comparison Study: US ULTRASOUND OF ABDOMEN on DOS: 01/27/25 Nuclear Medicine Hepatobiliary Scan. Technique: Following the intravenous administration of 4.8 mCi of technetium 99m labeled Choletec multiple planar abdominal planar images were obtained in anterior projection in 5 minute intervals for 60 minutes . Right lateral images were obtained at 60 minutes after injection. Findings: The liver appears grossly normal in size. There is no abnormal persistence of the cardiac or blood pool activity. There is prompt visualization of the gallbladder and excretion of activity into the small bowel. Impression: Unremarkable hepatobiliary study without evidence of acute cholecystitis.
[2025-01-28] MEDS: hydrALAZINE 20mg/ml inj. IV PRN (17:53)
[2025-01-28 18:00] VITALS: BP 182/80; PULSE 68; RESP 17; TEMP 97.9; O2SAT 96
--- NOTE | 2025-01-28 18:12 | HISTORY AND PHYSICAL-Residence ---
History & Physical Providers to CC Resident Creating Document: SAHIL MOSELEY, RES ~ History of Present Illness Primary Medical Doctor: Anneliese Rodrigez MD, Randell Urrutia MD Reason for Admit\Complaint: Abdominal pain History of Present Illness A 79-year-old Indonesian woman with limited Nigerian proficiency and a medical history of type 2 diabetes mellitus, hypertension, atrial fibrillation, chronic kidney disease, and uterine cancer in remission presented to the emergency department (ED) with severe right upper quadrant abdominal pain lasting three days. The pain was accompanied by sweating, nausea, and vomiting. She also reported experiencing a burning sensation during urination and dark urine, which improved after IV antibiotics were administered. Imaging revealed dilation of the common bile duct, and she subsequently underwent an MRCP, which did not show any obstruction. She was admitted for further evaluation and management. While under observation, her pain improved significantly, and she initially denied any nausea or vomiting. However, she reported occasional chest pain with exertion and shortness of breath, which were not present at the time. She experienced chills and weakness but denied having a fever. No other symptoms were reported. History was taken with the help of her sisters. PCP: Dr Stevenson Steel Division Supervisor: Dr Padilla Journeyman Welder: Dr Eubanks Auto Machinist: Dr Quintana Patient is independent for her daily activities Allergies: Coded Allergies: No Known Allergies (Unverified , 01/27/25) Home Medications Home Medications Active [hyDRALAzine tablet] 10 MG Tablet 50 Mg PO Q8H Reported Cordarone (Amiodarone HCl) 200 Mg Tablet 1 Tab PO DAILY 30 Days Nystatin 100,000 Unit/Gram Powder TOP BID Nystatin 100,000 Unit/Gram Cream.gm. 1 Applic TOP BID Vitamin D2 (Ergocalciferol (Vitamin D2)) 1,250 Mcg (46917 Unit) Capsule 1 Cap PO Q7D Edarbyclor 40-12.5 mg Tablet (Azilsartan Med/Chlorthalidone) 40 Mg-12.5 Mg Tablet 1 Tab PO DAILY 30 Days Metoprolol Succinate 200 Mg Tab.sr.24h 1 Tab PO DAILY Eliquis (Apixaban) 5 Mg Tablet 1 Tab PO Q12H 30 Days Nifedipine Er (Nifedipine) 60 Mg Tablet.sa 1 Tab PO DAILY 30 Days Cozaar* (Losartan Potassium) 25 Mg Tablet 4 Tab PO DAILY 30 Days Hydrochlorothiazide 25 Mg Tablet 1 Tab PO DAILY 30 Days Isosorbide Mononitrate Er (Isosorbide Mononitrate) 30 Mg Tab.er.24h 1 Tab PO DAILY 30 Days Cartia Xt (Diltiazem HCl) 240 Mg Cap.er.24h 1 Cap PO BID Novolog (Insulin Aspart) 100 Unit/1 Ml Cartridge 12 Unit SQ BEFORE SUPPER Novolog (Insulin Aspart) 100 Unit/1 Ml Cartridge 14 Unit SQ BEFORE LUNCH Novolog (Insulin Aspart) 100 Unit/1 Ml Cartridge 12 Unit SQ BKF Victoza 3-Ben (Liraglutide) 0.6 Mg/0.1 Ml Pen.injctr 1.2 Mg SQ DAILY Valacyclovir (Valacyclovir HCl) 500 Mg Tablet 1 Tab PO DAILY 30 Days Atorvastatin Calcium 20 Mg Tablet 1 Tab PO DAILY Lantus* (Insulin Glargine) 100 Unit/1 Ml Vial 38 Units SQ QPM Gabapentin 300 Mg Capsule 1 Cap PO TID Past Medical History Past Medical History 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 Chronic kidney disease Paroxysmal atrial fibrillation Hypertension Past Surgical History Surgical History Comment Hysterectomy due to uterine cancer Bilateral total knee replacement Bilateral carpal tunnel Family History Family History: FH: colon cancer Sister Past Social History Smoking: Non-Smoker Alcohol Use: None Drug Use: None Lives with: Spouse Lives In: Home ROS Constitutional: Reports: chills, malaise, weakness Eyes: Reports: no symptoms reported ENT: Reports: no symptoms reported Respiratory: Reports: shortness of breath, SOB with exertion Cardiovascular: Reports: chest pain, lightheadedness Gastrointestinal: Reports: see HPI, abdomen distended, abdominal pain, nausea, vomiting, poor appetite, poor fluid intake Genitourinary: Reports: burning, dysuria, frequency Female Genitalia: Reports: no reported symptoms Neurological: Reports: no symptoms reported Integumentary: Reports: no symptoms reported Allergic/Immunologic: Reports: no symptoms reported Hematologic/Lymphatic: Reports: no symptoms reported Endocrine: Reports: no symptoms reported Psychiatric: Reports: no symptoms reported Exam Vitals: Vital Signs Date Time Temp Pulse Resp B/P (MAP) Pulse Ox O2 Delivery O2 Flow Rate FiO2 01/28/25 17:53 61 01/28/25 16:51 Room Air 01/28/25 08:57 97.9 16 147/74 (98) 100 0 General: Awake , alert, and oriented x4 HEENT: Atraumatic, normocephalic, EOMI, anicteric sclera ; dry mucous membranes Neck: Trachea midline. Supple, full range of motion, no JVD Cardiac: Regular rhythm, regular rate with no murmurs all over the precordium. Respiratory: Equal breath sounds bilaterally, no tachypnea, no wheezing ,rub or rales, Chest wall is symmetric and without deformity. Gastrointestinal: Abdomen is mildly distended, normal bowel sounds, tympanic, tender to deep palpation in the right upper quadrant. Dumont sign is negative. Musculoskeletal: No pedal edema Neurological: Mental status exam: alert and consciousness, orientation, memory, speech - Cranial nerve test: Cranial nerves 2-12 intact - Motor system: Normal Nutrition, normal tone, Power 5/5, no involuntary movements - Sensory system: Intact - Cerebellar: Normal Skin: Warm and dry Diagnostic Data Last Recorded Lab Results: 01/27/25 0904 01/28/25 0537 Advance Care Planning Advanced Care plannin - 30 Minutes (The advanced care directives were discussed, and the patient has requested a full code status.) Additional Plan Assessment 79-year-old female with a history of type 2 diabetes mellitus, CKD, AFib, hypertension, presents with acute right upper quadrant pain, elevated liver enzymes, and dilated CBD on imaging without evidence of stones. She was admitted for further evaluation management. 1. Acalculous cholecystitis Possible passed choledocholithiasis Periampullary or pancreatic head lesion cannot be ruled out but is less likely Three day history of persistent RUQ pain, nausea and vomiting No leukocytosis, fever, or signs of sepsis. LFTs have improved with IV fluids and antibiotics. US abdomen: Thickened gallbladder wall, trace pericholecystic fluid. Common bile duct appears dilated. Consider MRCP. CT abdomen pelvis: 1. Slightly distended gallbladder without calcified gallstones. Common bile duct is dilated. Acute acholecystitis not excluded. Slightly distended gallbladder with dilated common bile duct measuring 1 cm. MRCP: Thickened gallbladder wall but no evidence for cholelithiasis. Correlate for acalculous cholecystitis. Dilated common bile duct up to 14 mm as well as dilatation of the intrahepatic ducts of the 6 mm. No definitive evidence for choledocholithiasis. Recommend GI and surgical consultation to exclude obstructing biliary / ampullary / pancreatic head etiology. HIDA Scan: Unremarkable hepatobiliary study without evidence of acute cholecystitis. WBC 5.5, ESR 94, procalcitonin 2.31, lactic acid 1.1 AST 420, ALT 1089, ALP 230, biliribun 1.1 (improving) Plan Surgery consulted, recommended only medical management at this moment GI consulted, ERCP not indicated at this time given negative MRCP and clinical improvement. Patient was initially NPO, started on full liquid diet Continue Zosyn q12h (renal dose) Continue IV hydration with NS 100mL/h Monitor LFTs and trend daily Pain control as needed 2. 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 Type II myocardial infarction Most likely due to demand ischemia in the setting of acute infection and MELINA Troponins 60-73 - pending 3rd troponin BNP 549 Plan No need for aspirin, patient is already on Eliquis Increased atorvastatin 20 to 40 mg daily Ordered lipid panel Ordered echocardiogram 4. Type 2 Diabetes Mellitus complicated with diabetic nephropathy A1c 7.2 On Lantus 20-50 units and lispro 10 units after meals Plan Decrease Lantus to 10 units at bedtime given previous NPO and poor oral intake Hyper/hypoglycemia protocol, sliding scale as needed 5. Paroxysmal atrial fibrillation Hypertension Current on sinus rhythm, controlled heart rate Systolic BP > 180mmHg, did not take home medications today Plan Continue Eliquis Continue home medications Hydralazine 10 mg IV p.r.n. 6. Hypokalemia Due to nausea, vomiting and poor oral intake K 2.7 at presentation Replace per protocol Code Status: Full code DVT prophylaxis: Eliquis Analgesia/sedation: Morphine/[place]/tube: PIV GI prophylaxis: Pantoprazole Nutrition: Full liquid diet Prognosis: Guarded Physical therapy: Ordered Disposition: Admit to ortho floor with telemetry. Resident attestation The above note has been reviewed and supervised by a senior resident PGY2/PGY3 Patient was seen, examined and discussed with the attending physician Date of Service: Jan 28, 2025 Billing Provider: ODETTE LEONARDO MD Common Visit Codes: 03916-LVIUZYA INP/OBS CARE (HIGH) Secondary Visit Codes: 83782-[id number] CARE PLAN 30 MINUTES SAHIL MOSELEY, RES Jan 28, 2025 18:12 ODETTE LEONARDO MD Jan 29, 2025 07:31
--- NOTE | 2025-01-28 19:40 | PROGRESS NOTE ---
Progress Note ID Providers to CC ~ Progress Note Progress Note: asked to evaluate for possible cholecystitis-hida negative for cholecystitis- call if needed GLADIS PANDEY MD Jan 28, 2025 19:40
[2025-01-28] MEDS: docusate sod 100mg capsule PO SCH (19:44)
--- NOTE | 2025-01-28 19:54 | RADIOLOGY REPORT ---
EXAM: DI CHEST,SINGLE VIEW HISTORY: Elevated troponins, occasional shortness of breath TECHNIQUE: 1 view of the chest COMPARISON: CT CT ABDOMEN PELVIS on DOS: 01/27/25 FINDINGS/IMPRESSION: LUNGS: No pleural effusion, consolidation, or pneumothorax. MEDIASTINUM: Unremarkable. BONES: No acute osseous abnormality. OTHER: None.
[2025-01-28 20:00] VITALS: RESP 17; O2SAT 96
[2025-01-28] MEDS: K and/or MAG REPLACEMENT MC SCH (20:00)
[2025-01-28] MEDS: insulin glargine (Lantus) pen - multi-dose SQ SCH (20:15)
[2025-01-28] MEDS: potassium Cl 20 mEq SR tablet PO PRN (21:38)
[2025-01-28 22:00] VITALS: BP 122/63; PULSE 67; RESP 23; TEMP 99.7; O2SAT 100
--- NOTE | 2025-01-28 22:18 | ELECTROCARDIOGRAPH REPORT ---
[facility] Test Date: 2025-01-28 Test Time: 22:17:00 Pat Name: STACY AARON Department: ORTHO 4S Room: ORTHO [facility] Gender: F Speech Instructor: : 1945 Requested By: SAHIL MOSELEY Order Number: [id number] Reading MD: Dr. Sung Eubanks Measurements Intervals [place] Rate: 65 P: -10 NM: 174 QRS: -24 QRSD: 104 T: -26 QT: 433 QTc: 451 Interpretive Statements Sinus rhythm Left ventricular hypertrophy Inferior infarct, old Anterior infarct, old Electronically Signed On 01-29-2025 7:00:[address] Sung Eubanks Please click the below link to view image of tracing.
[2025-01-29 05:13] LABS: MEAN PLATELET VOLUME 7.4 FL (7.4-10.4); RED CELL DISTRIBUTION WIDTH 14.6 % (11.5-14.5)
[2025-01-29] MEDS: piperacillin/tazo 3.375gm/50ml 50 ML IV SCH (05:41)
[2025-01-29 05:52] LABS: INR 1.1 INR
[2025-01-29 06:00] VITALS: BP 153/54; PULSE 65; RESP 14; TEMP 97.6; O2SAT 97
[2025-01-29 06:04] LABS: CHOL/HDL RATIO 2.1 (0.00-4.99); CREATININE 2.44 MG/DL (0.40-0.90); LDL CHOLESTEROL 58 MG/DL (50-100); TOTAL CARBON DIOXIDE 22.6 MMOL/L (24-32); eCRCL 14 ML/MIN; eGFR 19 ML/MIN
[2025-01-29 07:04] LABS: HIV ANTIBODY 1&2 RAPID NON-REACTIVE (Neg)
[2025-01-29] MEDS: pantoprazole 40mg Tablet.DR PO SCH (07:28)
[2025-01-29] MEDS: NIFEdipine XL 30mg tablet PO SCH (07:28)
[2025-01-29] MEDS: isosorbide mononitrate 30mg tab.SR.24H PO SCH (07:28)
[2025-01-29] MEDS: metoprolol succinate 25mg (24-HOUR) SR. Tablet PO SCH (07:40)
[2025-01-29 08:00] VITALS: RESP 14; O2SAT 97
--- NOTE | 2025-01-29 09:24 | PROGRESS NOTE- Residence ---
Progress Note - Resident Providers to CC Resident Creating Document: STEPHENIE SALDAÑA CC: BRENDA LAYTON MD ~ Antibiotic Timeout Antibiotic Ordered?: Yes Subjective Patient was seen and examined at bedside today. She reports that her abdominal pain is 4/10 today. She also complains of a new rash on her right arm with significant pruritus. Objective Vital Signs Date Time Temp Pulse Resp B/P (MAP) Pulse Ox O2 Delivery O2 Flow Rate FiO2 01/29/25 06:00 77 01/29/25 06:00 97.6 14 153/54 (87) 97 Room Air 01/28/25 08:57 0 Result Diagram: 01/29/25 0444 01/29/25 0455 General: awake, alert oriented to place, time, and person HEENT: no pallor present, no icterus, moist mucous membranes Neck: No masses and tenderness Resp: Unlabored. Lungs clear to auscultation bilaterally Chest: Normal expansion Cardiovascular: tachycardic, regular rhythm, normal S1 and S2 without murmur, rub or gallop Abdomen: Soft and mildly tender to palpation in RUQ, no organomegaly, no guarding and rigidity, bowel sounds present Neuro: No focal weakness in the upper and lower limb muscles, power of the muscles 4/5 bilateral upper and lower extremities, normal reflexes bilaterally. Cranial nerves intact Extremities: No cyanosis,clubbing or edema Skin: Warm and Dry. No lesions Psych: Normal affect and mood Coagulation Studies Laboratory Tests Test 01/29/25 04:55 Prothrombin Time 11.4 SECONDS (9.0-12.0) INR International Normalized Ratio 1.1 INR Coagulation Comments Plan Plan Assesment: Today, patient has significant improvement of abdominal pain, which is down to a 4/10. LFTs have also also continued to improve. Patient underwent HIDA scan yesterday per Dr Aguilar's recommendations which was negative for cholecystitis, therefore, surgery will not be performed at this time. The progression of her symptoms and laboratory tests suggest a passed CBD stone. Plan: - Resume diet now - Continue monitoring liver enzymes - Continue pain control as needed. Avoid NSAIDS due to CKD history - Continue Zosyn - Will follow up as an outpatient and will repeat MRCP Other comorbidities: MELINA on CKD DM2 HTN A-fib Continue management per hospitalist team Above recommendations discussed in detail with Dr Bob Hernandez MD Internal Medicine Resident, PGY-2 Date of Service: Jan 29, 2025 Billing Provider: BRENDA LAYTON MD, LEONARDO LUIS Jan 29, 2025 09:24 BRENDA LAYTON MD Jan 29, 2025 16:17
[2025-01-29 10:00] VITALS: BP 139/66; PULSE 65; RESP 24; TEMP 97.8; O2SAT 95
--- NOTE | 2025-01-29 14:57 | PROGRESS NOTE- Residence ---
Progress Note - Resident Providers to CC Resident Creating Document: SAHIL MOSELEY RES ~ Antibiotic Timeout Antibiotic Ordered?: Yes Subjective Patient was seen and examined at bedside today. She had significant clinical improvement, tolerating oral diet without nausea or vomiting, abdominal pain is gradually improving. She denies fever and urinary symptoms are improving. Objective Vital Signs Date Time Temp Pulse Resp B/P (MAP) Pulse Ox O2 Delivery O2 Flow Rate FiO2 01/29/25 10:00 97.8 65 24 139/66 (90) 95 Room Air 01/28/25 08:57 0 Result Diagram: 01/29/25 0444 01/29/25 0455 Awake , alert, and oriented x4 HEENT: Atraumatic, normocephalic, EOMI, anicteric sclera ; dry mucous membranes Neck: Trachea midline. Supple, full range of motion, no JVD Cardiac: Regular rhythm, regular rate with no murmurs all over the precordium. Respiratory: Equal breath sounds bilaterally, no tachypnea, no wheezing ,rub or rales, Chest wall is symmetric and without deformity. Gastrointestinal: Abdomen is mildly distended, normal bowel sounds, tympanic, tender to deep palpation in the right upper quadrant. Dumont sign is negative. Musculoskeletal: No pedal edema Neurological: Mental status exam: alert and consciousness, orientation, memory, speech - Cranial nerve test: Cranial nerves 2-12 intact - Motor system: Normal Nutrition, normal tone, Power 5/5, no involuntary movements - Sensory system: Intact - Cerebellar: Normal Skin: Warm and dry Coagulation Studies Laboratory Tests Test 01/29/25 04:55 Prothrombin Time 11.4 SECONDS (9.0-12.0) INR International Normalized Ratio 1.1 INR Coagulation Comments Plan Plan Assessment 79-year-old female with a history of type 2 diabetes mellitus, CKD, AFib, hypertension, presents with acute right upper quadrant pain, elevated liver enzymes, and dilated CBD on imaging without evidence of stones. She was admitted for further evaluation management. 1. Acalculous cholecystitis possible Possible passed choledocholithiasis Periampullary or pancreatic head lesion cannot be ruled out but is less likely Hepatitis also cannot be ruled out Three day history of persistent RUQ pain, nausea and vomiting No leukocytosis, fever, or signs of sepsis. LFTs have improved with IV fluids and antibiotics. US abdomen: Thickened gallbladder wall, trace pericholecystic fluid. Common bile duct appears dilated. Consider MRCP. CT abdomen pelvis: 1. Slightly distended gallbladder without calcified gallstones. Common bile duct is dilated. Acute acholecystitis not excluded. Slightly distended gallbladder with dilated common bile duct measuring 1 cm. MRCP: Thickened gallbladder wall but no evidence for cholelithiasis. Correlate for acalculous cholecystitis. Dilated common bile duct up to 14 mm as well as dilatation of the intrahepatic ducts of the 6 mm. No definitive evidence for choledocholithiasis. Recommend GI and surgical consultation to exclude obstructing biliary / ampullary / pancreatic head etiology. HIDA Scan: Unremarkable hepatobiliary study without evidence of acute cholecystitis. WBC 5.5, ESR 94, procalcitonin 2.31, lactic acid 1.1 AST 420, ALT 1089, ALP 230, biliribun 1.1 (improving) Plan Procalcitonin down to 1.56 Progress to 75 carb diet Continue Zosyn q12h (renal dose) Continue IV hydration with NS 100mL/h Monitor liver function Pending hepatitis panel 2. 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 Type II myocardial infarction Most likely due to demand ischemia in the setting of acute infection and MELINA Troponins 60-73 -80 BNP 549 Echo: Moderate concentric hypertrophy. LVEF is 70-75%. RV is mildly dilated with normal systolic function. RVSP is estimated at 37 mmHg. Plan No need for aspirin, patient is already on Eliquis Increased atorvastatin from 20 to 40 mg daily 4. 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 Paroxysmal atrial fibrillation Hypertension Current on sinus rhythm, controlled heart rate Systolic BP > 180mmHg, did not take home medications today Plan Continue Eliquis Continue home medications Hydralazine 10 mg IV p.r.n. 6. Hypokalemia - resolving Due to nausea, vomiting and poor oral intake K 2.7 at presentation, today 3.2 Replace per protocol Code Status: Full code DVT prophylaxis: Eliquis Analgesia/sedation: Morphine/[place] Line/tube: PIV GI prophylaxis: Pantoprazole Nutrition: 75 carb diet Prognosis: Guarded Physical therapy: Pending Disposition: Continue medical treatment. Possible discharge in 1-2 days with PO antibiotics. Resident MD attestation The above note has been reviewed and supervised by a senior resident PGY2/PGY3 Patient was seen, examined and discussed with the attending physician Date of Service: Jan 29, 2025 Billing Provider: ODETTE LEONARDO MD,SAHIL, RES Jan 29, 2025 14:57
--- NOTE | 2025-01-29 17:45 | CARDIOLOGY REPORT ---
APPROVED REPORT EXAM: Comprehensive 2D, Doppler, and color-flow Echocardiogram. Patient Location: [address] Blood Pressure: 147/74 mmHg Heart Rate: 68 bpm Rhythm: SINUS Indications CONGESTIVE HEART FAILURE HYPERTENSION ATRIAL FIBRILLATION Glaciologist: none Previous echo: 03/04/19 [facility] (EF 70-75%, trace MR, trace TR) 2D Dimensions RVDd 3.6 cm LA Diam 4.6 cm IVSd 1.5 (0.7-1.1cm) LVDd 3.5 cm PWd 1.4 (0.7-1.1cm) IVSs 1.6 (0.8-1.2cm) LVDs 2.1 (2.5-4.0cm) PWs 1.7 (0.8-1.2cm) LVOT Diameter 1.88 (1.8-2.4cm) LVEF(%) 72.7 (>50%) Ao Asc Diam. 3.50 cm FS (%) 40.9 % SV 36.5 ml CO 2.9 L/min M-Mode Dimensions Left Atrium(MM) 4.57 (2.5-4.0cm) Aortic Root 2.97 (2.2-3.7cm) Aortic Cusp Exc 2.06 (1.5-2.0cm) Biplane 2D LA Volumes LA ESV Index 23.20 mL/m2 Aortic Valve AoV Peak David. 134.0 cm/s AoV VTI 25.7 cm AO Peak GR. 7.2 mmHg AO Mean GR. 4 mmHg LVOT VTI 18.61 cm LVOT Peak David. 91.8 cm/s CATARINA(VTI)/BSA 2.01 cm2/m2 CATARINA (VTI) 2.01 cm2 AV DI 0.72 % Mitral Valve MV E Velocity 65.3 cm/s MV Peak Gr. 3 mmHg MV DECEL TIME 320 ms MV A Velocity 121.5 cm/s MV PHT 44 ms E/A Ratio 0.5 MVA (PHT) 5.00 cm2 MV VMax 82.0 cm/s TDI Medial E' P. V 6.89 cm/s E/Medial E' 9.5 Tricuspid Valve TR P. Velocity 258 cm/s RAP ESTIMATE 10 mmHg TR Peak Gr. 27 mmHg RVSP 37 mmHg Pulmonary Vein S1 Velocity 59.1 cm/s D2 Velocity 42.9 cm/s PVa Velocity 33.3 cm/s PVa Duration 112 msec LEFT VENTRICLE Reduced LV size and hyperdynamic function. Moderate concentric hypertrophy. LVEF is 70-75%. RIGHT VENTRICLE RV is mildly dilated with normal systolic function. RVSP is estimated at 37 mmHg. ATRIA LA size is normal. AORTIC VALVE Trileaflet AV appears mildly sclerotic without stenosis. Trace insufficiency. MITRAL VALVE Mild MV annular calcification without stenosis. Trace regurgitation. TRICUSPID VALVE TV appears structurally normal with trace regurgitation. PULMONIC VALVE Pulmonic valve is not well visualized. GREAT VESSELS Aortic root is normal in size. Ascending aorta is normal in size. PERICARDIUM Normal pericardium. No effusion. Other Information Study Quality: Adequate Conclusion Reduced LV size and hyperdynamic function. Moderate concentric hypertrophy. LVEF is 70-75%. RV is mildly dilated with normal systolic function. RVSP is estimated at 37 mmHg. LA size is normal. Trileaflet AV appears mildly sclerotic without stenosis. Trace insufficiency. Mild MV annular calcification without stenosis. Trace regurgitation. TV appears structurally normal with trace regurgitation. Normal pericardium. No effusion.
[2025-01-29 18:36] VITALS: BP 122/55; PULSE 68; RESP 19; TEMP 96.7; O2SAT 98
[2025-01-29] MEDS: insulin glargine (Lantus) pen - multi-dose SQ SCH (21:17)
[2025-01-29 22:00] VITALS: BP 126/59; PULSE 71; RESP 13; TEMP 97.2; O2SAT 98
[2025-01-30 06:00] VITALS: BP 133/76; PULSE 62; RESP 14; TEMP 97.2; O2SAT 96
[2025-01-30 06:02] LABS: MEAN PLATELET VOLUME 7.4 FL (7.4-10.4); RED CELL DISTRIBUTION WIDTH 14.8 % (11.5-14.5)
[2025-01-30 06:13] LABS: INR 1.1 INR
[2025-01-30 06:17] LABS: CREATININE 2.35 MG/DL (0.40-0.90); TOTAL CARBON DIOXIDE 21.9 MMOL/L (24-32); eCRCL 15 ML/MIN; eGFR 20 ML/MIN
[2025-01-30 08:00] VITALS: RESP 14; O2SAT 96
--- NOTE | 2025-01-30 09:35 | PROGRESS NOTE- Residence ---
Progress Note - Resident Providers to CC Resident Creating Document: STEPHENIE SALDAÑA CC: BRENDA LAYTON MD ~ Antibiotic Timeout Antibiotic Ordered?: Yes Subjective Patient was seen and examined at bedside today. Although she feels better, she feels like she wants to stay for one more day due to the fact that she lives far and it is hard for her to access the hospital. Objective Vital Signs Date Time Temp Pulse Resp B/P (MAP) Pulse Ox O2 Delivery O2 Flow Rate FiO2 01/30/25 08:00 14 96 Room Air 01/30/25 06:00 97.2 62 133/76 (95) 01/28/25 08:57 0 Result Diagram: 01/30/25 0501 01/30/25 0501 General: awake, alert oriented to place, time, and person HEENT: no pallor present, no icterus, moist mucous membranes Neck: No masses and tenderness Resp: Unlabored. Lungs clear to auscultation bilaterally Chest: Normal expansion Cardiovascular: tachycardic, regular rhythm, normal S1 and S2 without murmur, rub or gallop Abdomen: Soft and mildly tender to palpation in RUQ, no organomegaly, no guarding and rigidity, bowel sounds present Neuro: No focal weakness in the upper and lower limb muscles, power of the muscles 4/5 bilateral upper and lower extremities, normal reflexes bilaterally. Cranial nerves intact Extremities: No cyanosis,clubbing or edema Skin: Warm and Dry. No lesions Psych: Normal affect and mood Coagulation Studies Laboratory Tests Test 01/30/25 05:01 Prothrombin Time 11.4 SECONDS (9.0-12.0) INR International Normalized Ratio 1.1 INR Coagulation Comments Plan Plan Assesment: Today, Pain has significantly decreased. LFTs continued to improve. Her hepatitis panel is still pending. She is otherwise doing well Plan: - Continue monitoring liver enzymes - Continue pain control as needed. Avoid NSAIDS due to CKD history - Continue Zosyn, switch to p.o. antibiotics on discharge - Will follow up as an outpatient and will repeat MRCP Other comorbidities: MELINA on CKD DM2 HTN A-fib Continue management per hospitalist team Above recommendations discussed in detail with Dr Bob Hernandez MD Internal Medicine Resident, PGY-2 Date of Service: Jan 30, 2025 Billing Provider: BRENDA LAYTON MD, LEONARDO LUIS Jan 30, 2025 09:35
[2025-01-30 10:00] VITALS: BP 120/61; PULSE 71; RESP 14; TEMP 97.4; O2SAT 100
--- NOTE | 2025-01-30 12:44 | PROGRESS NOTE- Residence ---
Progress Note - Resident Providers to CC Resident Creating Document: SAHIL MOSELEY RES ~ Antibiotic Timeout Antibiotic Ordered?: Yes Subjective This is a very pleasant patient who was seen and examined at bedside today. Patient had significant clinical improvement with almost complete resolution of the abdominal pain. She is tolerating a regular diet without nausea or vomiting. No new symptoms since admission. Objective Vital Signs Date Time Temp Pulse Resp B/P (MAP) Pulse Ox O2 Delivery O2 Flow Rate FiO2 01/30/25 10:00 97.4 71 14 120/61 (80) 100 Room Air 01/28/25 08:57 0 Result Diagram: 01/30/25 0501 01/30/25 0501 Awake , alert, and oriented x4 HEENT: Atraumatic, normocephalic, EOMI, anicteric sclera ; dry mucous membranes Neck: Trachea midline. Supple, full range of motion, no JVD Cardiac: Regular rhythm, regular rate with no murmurs all over the precordium. Respiratory: Equal breath sounds bilaterally, no tachypnea, no wheezing ,rub or rales, Chest wall is symmetric and without deformity. Gastrointestinal: Abdomen is mildly distended, normal bowel sounds, tympanic, tender to deep palpation in the right upper quadrant. Dumont sign is negative. Musculoskeletal: No pedal edema Neurological: Mental status exam: alert and consciousness, orientation, memory, speech - Cranial nerve test: Cranial nerves 2-12 intact - Motor system: Normal Nutrition, normal tone, Power 5/5, no involuntary movements - Sensory system: Intact - Cerebellar: Normal Skin: Warm and dry Coagulation Studies Laboratory Tests Test 01/30/25 05:01 Prothrombin Time 11.4 SECONDS (9.0-12.0) INR International Normalized Ratio 1.1 INR Coagulation Comments Plan Plan Assessment 79-year-old female with a history of type 2 diabetes mellitus, CKD, AFib, hypertension, presents with acute right upper quadrant pain, elevated liver enzymes, and dilated CBD on imaging without evidence of stones. She was admitted for further evaluation management. 1. Acalculous cholecystitis possible Possible passed choledocholithiasis Periampullary or pancreatic head lesion cannot be ruled out but is less likely Hepatitis also cannot be ruled out Three day history of persistent RUQ pain, nausea and vomiting No leukocytosis, fever, or signs of sepsis. LFTs have improved with IV fluids and antibiotics. US abdomen: Thickened gallbladder wall, trace pericholecystic fluid. Common bile duct appears dilated. Consider MRCP. CT abdomen pelvis: 1. Slightly distended gallbladder without calcified gallstones. Common bile duct is dilated. Acute acholecystitis not excluded. Slightly distended gallbladder with dilated common bile duct measuring 1 cm. MRCP: Thickened gallbladder wall but no evidence for cholelithiasis. Correlate for acalculous cholecystitis. Dilated common bile duct up to 14 mm as well as dilatation of the intrahepatic ducts of the 6 mm. No definitive evidence for choledocholithiasis. Recommend GI and surgical consultation to exclude obstructing biliary / ampullary / pancreatic head etiology. HIDA Scan: Unremarkable hepatobiliary study without evidence of acute cholecystitis. WBC 5.5, ESR 94, procalcitonin 2.31, lactic acid 1.1 AST 420, ALT 1089, ALP 230, biliribun 1.1 (improving) Plan Continue Zosyn q12h (renal dose) Decrease IV hydration to NS 75mL/h Monitor liver function Pending hepatitis panel Anticipated discharge tomorrow 2. 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 Type II myocardial infarction Most likely due to demand ischemia in the setting of acute infection and MELINA Troponins 60-73 -80 BNP 549 Echo: Moderate concentric hypertrophy. LVEF is 70-75%. RV is mildly dilated with normal systolic function. RVSP is estimated at 37 mmHg. Plan Continue Eliquis Continue atorvastatin 40 mg daily 4. 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 Paroxysmal atrial fibrillation Hypertension Current on sinus rhythm, controlled heart rate Systolic BP > 180mmHg at presentation, now controlled Plan Continue Eliquis Continue home medications Hydralazine 10 mg IV p.r.n. 6. Hypokalemia - resolved Due to nausea, vomiting and poor oral intake K 2.7 at presentation, today 3.5 Replace per protocol Code Status: Full code DVT prophylaxis: Eliquis Analgesia/sedation: Morphine/[place] Line/tube: PIV GI prophylaxis: Pantoprazole Nutrition: 75 carb diet Prognosis: Guarded Physical therapy: Home Disposition: Continue medical treatment. Anticipated discharge tomorrow. Resident MD attestation The above note has been reviewed and supervised by a senior resident PGY2/PGY3 Patient was seen, examined and discussed with Dr Leonardo Date of Service: Jan 30, 2025 Billing Provider: ODETTE LEONARDO MD SOBIVAN,SAHIL, RES Jan 30, 2025 12:44
[2025-01-30 18:00] VITALS: BP 152/78; PULSE 79; RESP 18; TEMP 97.5; O2SAT 100
[2025-01-30 22:00] VITALS: BP 140/67; PULSE 77; RESP 15; TEMP 98.2; O2SAT 96
[2025-01-30 23:20] LABS: CREATININE,URINE RANDOM 20.0 MG/DL
[2025-01-30 23:21] LABS: OSMOLALITY UA 305.0 MOSM/K (50-1400)
[2025-01-31 06:00] VITALS: BP 152/71; PULSE 76; RESP 14; TEMP 98.8; O2SAT 99
[2025-01-31 06:25] LABS: MEAN PLATELET VOLUME 7.5 FL (7.4-10.4); RED CELL DISTRIBUTION WIDTH 14.9 % (11.5-14.5)
[2025-01-31 06:32] LABS: INR 1.1 INR
[2025-01-31 06:41] LABS: CREATININE 2.25 MG/DL (0.40-0.90); TOTAL CARBON DIOXIDE 23.1 MMOL/L (24-32); eCRCL 16 ML/MIN; eGFR 21 ML/MIN
[2025-01-31 10:00] VITALS: BP 128/54; PULSE 74; RESP 16; TEMP 97.1; O2SAT 92
--- NOTE | 2025-01-31 11:05 | PROGRESS NOTE- Residence ---
Progress Note - Resident Providers to CC Resident Creating Document: STEPHENIE SALDAÑA CC: BRENDA LAYTON MD ~ Antibiotic Timeout Antibiotic Ordered?: Yes Subjective Patient was seen and examined at bedside today. She feels much better today and she is careful with all the help she has received. She denies any abdominal pain, nausea, vomiting or any other subjective symptoms a day. Objective Vital Signs Date Time Temp Pulse Resp B/P (MAP) Pulse Ox O2 Delivery O2 Flow Rate FiO2 01/31/25 10:00 97.1 74 16 128/54 (78) 92 Room Air 01/28/25 08:57 0 Result Diagram: 01/31/2553 01/31/25552 General: awake, alert oriented to place, time, and person HEENT: no pallor present, no icterus, moist mucous membranes Neck: No masses and tenderness Resp: Unlabored. Lungs clear to auscultation bilaterally Chest: Normal expansion Cardiovascular: tachycardic, regular rhythm, normal S1 and S2 without murmur, rub or gallop Abdomen: Soft and nontender, no organomegaly, no guarding and rigidity, bowel sounds present Neuro: No focal weakness in the upper and lower limb muscles, power of the muscles 5/5 bilateral upper and lower extremities, normal reflexes bilaterally. Cranial nerves intact Extremities: No cyanosis,clubbing or edema Skin: Warm and Dry. No lesions Psych: Normal affect and mood Coagulation Studies Laboratory Tests Test 01/31/25 05:53 Prothrombin Time 11.2 SECONDS (9.0-12.0) INR International Normalized Ratio 1.1 INR Coagulation Comments Plan Plan Assesment: Patient's abdominal pain has completely resolved. LFTs are slowly normalizing. Her hepatitis panel is still pending. She is otherwise doing well Plan: - Continue monitoring liver enzymes - Continue antibiotics - Will follow up as an outpatient and will repeat MRCP - Ok to DC patient from a GI standpoint Other comorbidities: MELINA on CKD DM2 HTN A-fib Continue management per hospitalist team Above recommendations discussed in detail with Dr Bob Hernandez MD Internal Medicine Resident, PGY-2 Date of Service: Jan 31, 2025 Billing Provider: BRENDA LAYTON MD, LEONARDO LUIS Jan 31, 2025 11:05
[2025-01-31] MEDS ORDERED: CEFD300C3 PO (13:01)
[2025-01-31] MEDS ORDERED: METR-159 PO (13:01)
[2025-01-31] MEDS ORDERED: LACT1CAP26 PO (13:01)
--- NOTE | 2025-01-31 15:12 | DISCHARGE SUMMARY-Residence ---
Discharge Summary Providers to CC Resident Creating Document: SAHIL MOSELEY RES ~ Discharge Summary Admission Diagnosis: Acalculous cholecystitis Hospital Course DATE OF ADMISSION: 01/28/25 DATE OF DISCHARGE: 01/31/25 Laboratory Tests Test 01/29/25 17:14 01/29/25 20:41 01/30/25 05:01 01/30/25 06:57 Glucometer 133 mg/dl 226 mg/dl 96 mg/dl White Blood Count 3.0 X10'3 Red Blood Count 2.69 X10'6 Hemoglobin 8.8 g/dl Hematocrit 25.5 % Mean Corpuscular Volume 94.7 FL Mean Corpuscular Hemoglobin 32.8 PG Mean Corpuscular Hemoglobin Concent 34.6 g/dL Red Cell Distribution Width 14.8 % Platelet Count 180 X10'3 Mean Platelet Volume 7.4 FL Hematology Comments Prothrombin Time 11.4 SECONDS INR International Normalized Ratio 1.1 INR Coagulation Comments Sodium Level 138 MMOL/L Potassium Level 3.5 MMOL/L Chloride Level 109 MMOL/L Carbon Dioxide Level 21.9 MMOL/L Anion Gap 7 Blood Urea Nitrogen 40 MG/DL Creatinine 2.35 MG/DL Estimated GFR/1.73 m2 20 ML/MIN BUN/Creatinine Ratio 17.0 Glucose Level 91 MG/DL Calcium Level 8.1 MG/DL Magnesium Level 2.3 MG/DL Total Bilirubin 0.4 MG/DL Direct Bilirubin 0.2 MG/DL Aspartate Amino Transf (AST/SGOT) 67 U/L Alanine Aminotransferase (ALT/SGPT) 360 U/L Alkaline Phosphatase 278 IU/L Total Protein 6.4 G/DL Albumin 2.4 G/DL Globulin 4.0 G/DL Albumin/Globulin Ratio 0.6 Chemistry Comments Test 01/30/25 08:56 01/30/25 12:38 01/30/25 17:04 01/30/25 20:48 Procalcitonin 0.92 NG/ML Glucometer 153 mg/dl 164 mg/dl 187 mg/dl Test 01/30/25 22:35 01/31/25 05:53 01/31/25 07:33 01/31/25 13:48 Urine Osmolality 305 MOSM/K Urine Random Creatinine 20.0 MG/DL Urine Random Sodium 86 MEQ/L White Blood Count 4.0 X10'3 Red Blood Count 2.74 X10'6 Hemoglobin 9.0 g/dl Hematocrit 26.0 % Mean Corpuscular Volume 94.7 FL Mean Corpuscular Hemoglobin 32.8 PG Mean Corpuscular Hemoglobin Concent 34.6 g/dL Red Cell Distribution Width 14.9 % Platelet Count 189 X10'3 Mean Platelet Volume 7.5 FL Hematology Comments Prothrombin Time 11.2 SECONDS INR International Normalized Ratio 1.1 INR Coagulation Comments Sodium Level 139 MMOL/L Potassium Level 3.6 MMOL/L Chloride Level 108 MMOL/L Carbon Dioxide Level 23.1 MMOL/L Anion Gap 8 Blood Urea Nitrogen 36 MG/DL Creatinine 2.25 MG/DL Estimated GFR/1.73 m2 21 ML/MIN BUN/Creatinine Ratio 16.0 Glucose Level 106 MG/DL Calcium Level 8.2 MG/DL Magnesium Level 2.0 MG/DL Total Bilirubin 0.3 MG/DL Direct Bilirubin 0.2 MG/DL Aspartate Amino Transf (AST/SGOT) 50 U/L Alanine Aminotransferase (ALT/SGPT) 282 U/L Alkaline Phosphatase 271 IU/L Total Protein 6.6 G/DL Albumin 2.5 G/DL Globulin 4.1 G/DL Albumin/Globulin Ratio 0.6 Procalcitonin 0.56 NG/ML Chemistry Comments Glucometer 102 mg/dl 147 mg/dl Discharge Diagnosis\Comment: 1. Acalculous cholecystitis possible Possible passed choledocholithiasis Periampullary or pancreatic head lesion cannot be ruled out but is less likely Acute Hepatitis also cannot be ruled out 2. 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 Type II myocardial infarction 4. 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 Paroxysmal atrial fibrillation Hypertension 6. Hypokalemia - resolved Operations\Procedures: None Consultants: Surgery Complications: None Condition on DC: Stable New Medications: Cefdinir* (Cefdinir*) 300 Mg Capsule 1 CAP PO Q12H for 7 Days, #14 CAP Lactobacillus Rhamnosus (Culturelle) 10 Billion Cell Capsule 1 CAP PO BID for 14 Days, #28 CAP 0 Refills Metronidazole* (Flagyl*) 500 Mg Tablet 1 TAB PO BID for 7 Days, #14 TAB Continued Medications: Amiodarone Hcl (Cordarone) 200 Mg Tablet 1 TAB PO DAILY for 30 Days, #30 TAB Apixaban (Eliquis) 5 Mg Tablet 1 TAB PO Q12H for 30 Days, #60 TAB 0 Refills Atorvastatin Calcium (Atorvastatin Calcium) 20 Mg Tablet 1 TAB PO DAILY Azilsartan Med/Chlorthalidone (Edarbyclor 40-12.5 mg Tablet) 40 Mg-12.5 Mg Tablet 1 TAB PO DAILY for 30 Days, #30 TAB 0 Refills Ergocalciferol (Vitamin D2) (Vitamin D2) 1,250 Mcg (98806 Unit) Capsule 1 CAP PO Q7D Gabapentin (Gabapentin) 300 Mg Capsule 1 CAP PO TID, CAP [hyDRALAzine tablet] () 10 MG TABLET 50 MG PO Q8H, #120 Insulin Aspart (Novolog) 100 Unit/1 Ml Cartridge 12 UNIT SQ BKF, UNIT Insulin Aspart (Novolog) 100 Unit/1 Ml Cartridge 14 UNIT SQ BEFORE LUNCH, UNIT Insulin Aspart (Novolog) 100 Unit/1 Ml Cartridge 12 UNIT SQ BEFORE SUPPER, UNIT Insulin Glargine,Hum.rec.anlog* (Lantus*) 100 Unit/1 Ml Vial 38 UNITS SQ QPM Isosorbide Mononitrate (Isosorbide Mononitrate Er) 30 Mg Tab.er.24h 1 TAB PO DAILY for 30 Days, #30 TAB Liraglutide (Victoza 3-Ben) 0.6 Mg/0.1 Ml Pen.injctr 1.2 MG SQ DAILY Metoprolol Succinate (Metoprolol Succinate) 200 Mg Tab.sr.24h 1 TAB PO DAILY Nifedipine (Nifedipine Er) 60 Mg Tablet.sa 1 TAB PO DAILY for 30 Days, #30 TAB 0 Refills Nystatin (Nystatin) 100,000 Unit/Gram Cream.gm. 1 APPLIC TOP BID Nystatin (Nystatin) 100,000 Unit/Gram Powder TOP BID Valacyclovir HCl (Valacyclovir) 500 Mg Tablet 1 TAB PO DAILY for 30 Days, #30 TAB Discontinued Medications: Diltiazem HCl (Cartia Xt) 240 Mg Cap.er.24h 1 CAP PO BID Hydrochlorothiazide (Hydrochlorothiazide) 25 Mg Tablet 1 TAB PO DAILY for 30 Days, #30 TAB Losartan Potassium* (Cozaar*) 25 Mg Tablet 4 TAB PO DAILY for 30 Days, #30 TAB Discharge Summary: History of present illness Patient was admitted with the following HPI: A 79-year-old Hebrew woman with limited Hungarian proficiency and a medical history of type 2 diabetes mellitus, hypertension, atrial fibrillation, chronic kidney disease, and uterine cancer in remission presented to the emergency department (ED) with severe right upper quadrant abdominal pain lasting three days. The pain was accompanied by sweating, nausea, and vomiting. She also reported experiencing a burning sensation during urination and dark urine, which improved after IV antibiotics were administered. Imaging revealed dilation of the common bile duct, and she subsequently underwent an MRCP, which did not show any obstruction. She was admitted for further evaluation and management. While under observation, her pain improved significantly, and she initially denied any nausea or vomiting. However, she reported occasional chest pain with exertion and shortness of breath, which were not present at the time. She experienced chills and weakness but denied having a fever. No other symptoms were reported. History was taken with the help of her sisters. PCP: Dr Stevenson Hair Specialist: Dr Padilla Property Master: Dr Eubanks Automotive Machinist: Dr Quintana Patient is independent for her daily activities Hospital course A very pleasant 79-year-old female patient with CKD, type 2 DM, and AFib was admitted for severe abdominal pain, poor oral intake, nausea, and vomiting. Abdominal ultrasound showed common bile duct dilation, which prompted an MRCP that revealed acalculus cholecystitis and common bile duct dilation without any obstruction. The patient was admitted and started on IV fluids and antibiotics. Soon after the initial treatment, she experienced significant clinical improvement. A subsequent HIDA scan did not show any signs of cholecystitis. She was evaluated by surgery, which recommended only medical management. She had almost complete resolution of her abdominal pain, progressively decreasing transaminases, and she was able to tolerate an oral diet without any nausea or vomiting. She also had MELINA on CKD, which improved with IV fluids. Troponins were mildly elevated, most likely due to demand ischemia in the setting of MELINA and infection, as the patient did not have chest pain or sh ortness of breath. The patient is otherwise stable and will be discharged home with outpatient follow-up to finish her antibiotic course. Abdomen US Thickened gallbladder wall, trace pericholecystic fluid. Common bile duct appea rs dilated. Consider MRCP. Abdomen pelvis CT 1. Slightly distended gallbladder without calcified gallstones. Common bile duct is dilated. Acute acholecystitis not excluded. 2. Slightly distended gallbladder with dilated common bile duct measuring 1 cm. 3. No intrahepatic biliary ductal dilatation. 4. Exophytic lesion in the lower pole of the right kidney measuring 4.1 cm. MRCP Thickened gallbladder wall but no evidence for cholelithiasis. Correlate for acalculous cholecystitis. Recommend surgical consultation. Dilated common bile duct up to 14 mm as well as dilatation of the intrahepatic ducts of the 6 mm. No definitive evidence for choledocholithiasis. Recommend GI and surgical consultation to exclude obstructing biliary / ampullary / pancreatic head etiology. Pancreatic T2 bright/ cystic lesions measuring up to 6 mm which can be seen with IPMN, pancreatic cyst, pseudocyst, cystic neoplasm. HIDA scan Unremarkable hepatobiliary study without evidence of acute cholecystitis. Echocardiogram Reduced LV size and hyperdynamic function. Moderate concentric hypertrophy. LVEF is 70-75%. RV is mildly dilated with normal systolic function. RVSP is estimated at 37 mmHg. LA size is normal. Trileaflet AV appears mildly sclerotic without stenosis. Trace insufficiency. Mild MV annular calcification without stenosis. Trace regurgitation. TV appears structurally normal with trace regurgitation. Normal pericardium. No effusion. Chest x-ray No acute intrathoracic abnormality Discharge physical exam Awake , alert, and oriented x4 HEENT: Atraumatic, normocephalic, EOMI, anicteric sclera ; dry mucous membranes Neck: Trachea midline. Supple, full range of motion, no JVD Cardiac: Regular rhythm, regular rate with no murmurs all over the precordium. Respiratory: Equal breath sounds bilaterally, no tachypnea, no wheezing ,rub or rales, Chest wall is symmetric and without deformity. Gastrointestinal: Abdomen is mildly distended, normal bowel sounds, tympanic, tender to deep palpation in the right upper quadrant. Dumont sign is negative. Musculoskeletal: No pedal edema Neurological: Mental status exam: alert and consciousness, orientation, memory, speech - Cranial nerve test: Cranial nerves 2-12 intact - Motor system: Normal Nutrition, normal tone, Power 5/5, no involuntary movements - Sensory system: Intact - Cerebellar: Normal Skin: Warm and dry Discharge medications See below Discharge instructions Follow-up with your primary care physician in one week Eat a low-fat diet and ensure adequate hydration Take cefdinir and metronidazole twice a day for 7 days Take Culturelle twice a day for 6 months Monitor your blood pressure and glucose daily. Hold diltiazem, hydrochlorothiazide and losartan. Continue other home medication Follow up with Dr. Fernandes, cake puller. Come back in case of fever, increasing abdominal pain, nausea, vomiting or any concerning symptoms *Problems/Diagnosis: (1) Acute acalculous cholecystitis Status: Acute (2) Common bile duct dilatation Status: Acute (3) Diabetic neuropathy Status: Chronic (4) DM type 2 (diabetes mellitus, type 2) Status: Chronic Total Time Spent on D/C: > 30 Minutes Date of Service: Jan 31, 2025 Billing Provider: ODETTE LEONARDO MD Problem Qualifiers (1) DM type 2 (diabetes mellitus, type 2): Diabetes mellitus [facility] insulin use: with longwall foreman use Diabetes mellitus complication status: with kidney complications Diabetes mellitus complication detail: with chronic kidney disease Chronic kidney disease stage: stage 4 (GFR 15-29) Qualified Codes: E11.22 - Type 2 diabetes mellitus with diabetic chronic kidney disease; N18.4 - Chronic kidney disease, stage 4 (severe); Z79.4 - terminal press operator (current) use of insulin SAHIL MOSELEY, RES Jan 31, 2025 15:12
== END 2025-01-31 14:24 | disposition home or self-care (01) | DRG 441 ==
LOC: ER 08:36 → ED HOLD 01-28 07:51 → ORTHO 4S 01-28 10:25 → ED HOLD 01-28 11:04 → ORTHO 4S 01-28 12:44
PROVIDERS: ADMIT Family Medicine; ATTEND Family Medicine
PROC: CF141ZZ Planar Nuclear Medicine Imaging of Gallbladder using Technetium 99m (Tc-99m) (ICD-10-PCS; principal; 2025-01-28)
DX: B17.9 Acute viral hepatitis, unspecified (principal); I21.A1 Myocardial infarction type 2; N17.0 Acute kidney failure with tubular necrosis; K81.0 Acute cholecystitis; N18.4 Chronic kidney disease, stage 4 (severe); N39.0 Urinary tract infection, site not specified; I12.9 Hypertensive chronic kidney disease with stage 1 through stage 4 chronic kidney disease, or unspecified chronic kidney disease; E11.22 Type 2 diabetes mellitus with diabetic chronic kidney disease; I48.0 Paroxysmal atrial fibrillation; E87.6 Hypokalemia; E11.40 Type 2 diabetes mellitus with diabetic neuropathy, unspecified; Z96.653 Presence of artificial knee joint, bilateral; K83.8 Other specified diseases of biliary tract; K86.89 Other specified diseases of pancreas; Z79.4 Long term (current) use of insulin; Z79.899 Other long term (current) drug therapy; Z90.710 Acquired absence of both cervix and uterus; Z85.42 Personal history of malignant neoplasm of other parts of uterus
CPT/HCPCS: 36415; 71045; 74176; 74181; 76700; 78227; 80048; 80053; 80061; 80076; 81001; 82570; 82948; 82977; 83036; 83605; 83690; 83735; 83880; 83930; 83935; 84145; 84300; 84484; 85025; 85027; 85610; 85651; 86703; 86705; 86803; 87040; 87081; 87088; 87340; 87522; 93005; 93306; 96361; 96365; 97116; 97161; 97530; 99285; A6250; A6258; A9537; G0378; J0360; J1815; J2543; J3480; J7030